=== PATIENT | male | born 1970 | race Caucasian/White ===

== ENCOUNTER 2021-02-07 16:57 | Outpatient (REF) | payer OTHER, SELFPAY ==
[2021-02-07 17:40] LABS: MANUAL DIFF FLAG NO
[2021-02-07 17:44] LABS: Basophils Percent Auto 0.3 % (0-2); Eosinophils Absolute Auto 0.2 X10*3/uL (0.0-0.4); Eosinophils Percent Auto 2.6 % (0-4); Hematocrit 33.7 % (42-52); Hemoglobin 11.3 g/dl (14.0-18.0); Imm Gran Abs Auto 0.02 X10*3/uL (0.00-0.03); Imm Gran Pct Auto 0.3 % (0.0-0.4); Lymphocytes Absolute Auto 1.9 X10*3/uL (1.2-4.9); Lymphocytes Percent Auto 33.7 % (20-40); Mean Corpuscular HGB Conc 33.5 g/dl (31.0-36.0); Mean Corpuscular Hemoglobin 32.8 pg (27.0-33.0); Mean Corpuscular Volume 97.7 fL (80-98); Mean Platelet Volume 9.4 fL (9.4-12.4); Monocytes Absolute Auto 0.8 X10*3/uL (0.1-1.2); Monocytes Percent Auto 14.7 % (2-11); Neutrophils Absolute Auto 2.8 X10*3/uL (2.0-8.3); Neutrophils Percent Auto 48.4 % (45-73); Platelet Count 122 X10*3/uL (160-400); Red Blood Count 3.45 X10*6/uL (4.60-5.80); Red Cell Distribution Width 12.7 % (11.0-16.0); White Blood Count 5.7 X10*3/uL (4.8-10.8)
[2021-02-07 18:05] LABS: Alanine Aminotransferase 73 U/L (0-40); Albumin Level 4.2 g/dL (3.5-5.0); Alkaline Phosphatase 212 U/L (39-117); Anion Gap 14 (12-20); Aspartate Amino Transferase 66 U/L (5-37); Bilirubin Total 0.9 mg/dL (0.0-1.0); Blood Urea Nitrogen 9 mg/dL (9-16); Calcium 9.9 mg/dL (8.4-10.2); Carbon Dioxide 23 mmol/L (22-29); Chloride 105 mmol/L (96-108); Cholesterol 168 mg/dL; Estimated Glomerular Filt Rate > 60; Glucose Random 98 mg/dL (60-115); HDL Cholesterol 50 mg/dL; LDL Cholesterol Calculated 96 mg/dl; Potassium 3.8 mmol/L (3.3-5.1); Sodium 138 mmol/L (135-145); Triglycerides 113 mg/dL
== END 2021-02-07 16:58 | disposition home or self-care (01) ==
LOC: HO.LAB 16:57
PROVIDERS: PCP Internal Medicine; Visit Provider Internal Medicine
DX: I10 Essential (primary) hypertension (principal); R21 Rash and other nonspecific skin eruption
CPT/HCPCS: 36415; 80053; 80061; 85025

== ENCOUNTER 2021-09-15 10:51 | Outpatient (REF) | payer OTHER, SELFPAY ==
[2021-09-15 10:56] VITALS: BMI 30.2
[2021-09-15 10:57] VITALS: BP 115/68; PULSE 75; RESP 16; TEMP 36.3; O2SAT 97
== END 2021-09-15 10:52 | disposition home or self-care (01) ==
LOC: HO.MS 10:51
PROVIDERS: PCP Internal Medicine; Visit Provider Ophthalmology
PROC: (CPT 66821; principal; 2021-09-15 12:50)
DX: H26.491 Other secondary cataract, right eye (principal); Z96.1 Presence of intraocular lens; I10 Essential (primary) hypertension; Z79.899 Other long term (current) drug therapy; Z87.891 Personal history of nicotine dependence
CPT/HCPCS: 66821

== ENCOUNTER 2021-11-06 11:24 | Outpatient (REF) | payer OTHER, SELFPAY ==
[2021-11-06 12:03] LABS: COVID-19 Test Negative (Negative)
== END 2021-11-06 11:25 | disposition home or self-care (01) ==
LOC: HO.LAB 11:24
PROVIDERS: Visit Provider Internal Medicine
DX: Z20.822 Contact with and (suspected) exposure to COVID-19 (principal)
CPT/HCPCS: 87635; C9803

== ENCOUNTER 2021-11-21 16:52 | Outpatient (REF) | payer OTHER, SELFPAY ==
[2021-11-21 18:13] LABS: Alanine Aminotransferase 57 U/L (0-40); Albumin Level 3.7 g/dL (3.5-5.0); Alkaline Phosphatase 292 U/L (39-117); Anion Gap 12 (12-20); Aspartate Amino Transferase 87 U/L (5-37); Bilirubin Total 1.8 mg/dL (0.0-1.0); Blood Urea Nitrogen 10 mg/dL (9-16); Calcium 9.1 mg/dL (8.4-10.2); Carbon Dioxide 25 mmol/L (22-29); Chloride 105 mmol/L (96-108); Cholesterol 167 mg/dL; Estimated Glomerular Filt Rate > 60; Glucose Random 108 mg/dL (60-115); HDL Cholesterol 40 mg/dL; LDL Cholesterol Calculated 114 mg/dl; Potassium 3.9 mmol/L (3.3-5.1); Sodium 138 mmol/L (135-145); Total Protein 7.7 g/dL (6.5-8.0); Triglycerides 66 mg/dL
[2021-11-24 07:54] LABS: HBS Num1 3.64 mIU/mL (0-7.99); HBc Num1 0.17 S/CO (0.00-0.79); HBsAGNum1 0.28 S/CO (0.00-0.99); Hepatitis B Core Antibody Nonreactive (Nonreactive); Hepatitis B Surface Antigen Negative (Negative); ~Hepatitis B Surface Antibody NONREACTIVE (Nonreactive); ~Hepatitis C Antibody Nonreactive (Nonreactive)
[2021-11-25 07:54] LABS: Hepatitis A Antibody IgM 0.12 Index (0-0.79); ~Hepatitis A Antibody IgM Nonreactive (Nonreactive)
== END 2021-11-21 16:53 | disposition home or self-care (01) ==
LOC: HO.LAB 16:52
PROVIDERS: PCP Internal Medicine; Visit Provider Internal Medicine
DX: Z00.00 Encounter for general adult medical examination without abnormal findings (principal); F10.20 Alcohol dependence, uncomplicated; I10 Essential (primary) hypertension; R74.01 Elevation of levels of liver transaminase levels
CPT/HCPCS: 36415; 80053; 80061; 86704; 86706; 86709; 86803; 87340

== ENCOUNTER 2022-04-20 13:47 | Outpatient (REF) | payer OTHER, SELFPAY ==
[2022-04-20 14:22] LABS: COVID-19 Test Negative (Negative); IDNOW Serial# BCCEAD1C
== END 2022-04-20 13:48 | disposition home or self-care (01) ==
LOC: HO.LAB 13:47
PROVIDERS: Visit Provider Internal Medicine
DX: Z20.822 Contact with and (suspected) exposure to COVID-19 (principal)
CPT/HCPCS: 87635; C9803

== ENCOUNTER 2022-06-16 12:32 | Emergency (ER) | payer OTHER, SELFPAY ==
--- NOTE | ~2022-06-16 | XR_ITS ---
EXAMINATION: LEFT TIBIA-FIBULA. LEFT FEMUR. CLINICAL INFORMATION: Pain and swelling COMPARISON: None TECHNIQUE: 2 views of the left tibia fibula. 2 views left femur. FINDINGS: Left femur: No fracture or destructive process. Left hip intact. Chronic osseous irregularity to the inferior left hemipelvis likely due to old trauma. Vascular calcifications are noted. The patient diabetic? Left tibia fibula: Degenerative changes in the knee. The tibia and fibula are intact. Vascular calcifications noted. The ankle mortise is noted to be intact. XR/XR femur LT 2V IMPRESSION: No acute abnormalities.
--- NOTE | ~2022-06-16 | XR_ITS ---
EXAMINATION: LEFT TIBIA-FIBULA. LEFT FEMUR. CLINICAL INFORMATION: Pain and swelling COMPARISON: None TECHNIQUE: 2 views of the left tibia fibula. 2 views left femur. FINDINGS: Left femur: No fracture or destructive process. Left hip intact. Chronic osseous irregularity to the inferior left hemipelvis likely due to old trauma. Vascular calcifications are noted. The patient diabetic? Left tibia fibula: Degenerative changes in the knee. The tibia and fibula are intact. Vascular calcifications noted. The ankle mortise is noted to be intact. XR/XR tibia fibula LT 2V IMPRESSION: No acute abnormalities.
[2022-06-16 14:11] VITALS: BP 137/76; PULSE 86; RESP 16; TEMP 36.3; O2SAT 99; BMI 31.0
--- NOTE | 2022-06-16 14:13 | ED_ITS ---
HPI - General Adult General Chief complaint: Extremity Injury, Lower <JERRI Mcfarlane Last Filed: 06/22/22 12:01> Stated complaint: L leg swelling <JERRI Mcfarlane Last Filed: 06/22/22 12:01> Time Seen by Provider: 06/16/22 14:52 <JERRI Mcfarlane Last Filed: 06/22/22 12:01> Source: patient <JERRI Paredes Last Filed: 06/16/22 16:48> Mode of arrival: ambulatory <JERRI Paredes Last Filed: 06/16/22 16:48> Limitations: no limitations <JERRI Paredes Last Filed: 06/16/22 16:48> History of Present Illness HPI narrative: 52 yo male presenting to the ER for evaluation of an expanding bruise on his left leg. He reports he fell on 06/13 while walking down the stairs and his left leg hit the banister. He reports initially getting a small bruise to the inside of his left knee. Over the last few days the bruise has been expanding. It is bright purple and blue. The center is tender. He reports it is worse throbbing pain when he stands on his legs for too long. He is not on blood thinners or aspirin. He denies any other injuries. He denies any weakness, numbness or tingling in the leg. <JERRI Paredes Last Filed: 06/16/22 16:48> MD complaint: Expanding hematoma <JERRI Paredes Last Filed: 06/16/22 16:48> Onset (ago): day(s) <JERRI Paredes Last Filed: 06/16/22 16:48> Location: left and lower extremity <JERRI Paredes Last Filed: 06/16/22 16:48> Radiation: distal <JERRI Paredes Last Filed: 06/16/22 16:48> Severity: moderate <JERRI Paredes Last Filed: 06/16/22 16:48> Quality: aching <JERRI Paredes Last Filed: 06/16/22 16:48> Pain Consistency: intermittent <JERRI Paredes Last Filed: 06/16/22 16:48> Relieving factors: movement <JERRI Paredes Last Filed: 06/16/22 16:48> Exacerbating factors: immobilization <JERRI Paredes Last Filed: 06/16/22 16:48> Associated symptoms: denies other symptoms <JERRI Paredes Last Filed: 06/16/22 16:48> Treatments prior to arrival: none <JERRI Paredes Last Filed: 06/16/22 16:48> Related Data Allergies/adverse reactions: Allergies Allergy/AdvReac Type Severity Reaction Status Date / Time acetaminophen [From PERCOCET] Allergy Unknown ITCHING Unverified 02/01/20 15:05 oxycodone [From PERCOCET] Allergy Unknown ITCHING Unverified 02/01/20 15:05 <JERRI Mcfarlane Last Filed: 06/22/22 12:01> Review of Systems Review of Systems: Yes all other systems are reviewed and are negative <JERRI Paredes Last Filed: 06/16/22 16:48> [facility] Social History Social History: Social History Advance Directives: No Advance Directives Information Provided: Yes <JERRI Mcfarlane Last Filed: 06/22/22 12:01> Physical Exam ED Vital Signs: Vital Signs - 24 hr 06/16/22 14:11 Temperature 97.4 F Pulse Rate 86 Respiratory Rate 16 Blood Pressure 137/76 Pulse Oximetry 99 Oxygen Delivery Method Room Air BMI result Body Mass Index 31.0 <JERRI Mcfarlane Last Filed: 06/22/22 12:01> Vital Signs - 24 hr 06/16/22 14:11 Temperature 97.4 F Pulse Rate 86 Respiratory Rate 16 Blood Pressure 137/76 Pulse Oximetry 99 Oxygen Delivery Method Room Air BMI result Body Mass Index 31.0 <JERRI Paredes Last Filed: 06/16/22 16:48> Appearance: Alert. Oriented X3. No acute distress. HEENT: normal inspection CVS: Normal heart rate and rhythm. Pulses normal. Respiratory: No respiratory distress. Skin: Skin warm and dry. Normal skin color. Normal skin turgor. No rashes. Extremities: Large, dark purple hematoma of the distal half of the left inner thigh, medial left knee and proximal left lower leg. Central area of tenderness and firmness. Compartments are otherwise soft and compressible. Neurovascularly intact distally. Normal range of motion of the knee. Neuro: Oriented X 3. No motor deficit. No sensory deficit. Slow but steady gait <JERRI Paredes Last Filed: 06/16/22 16:48> Course Course Course Narrative: RME: presents to the ED for left lower thigh and upper tibia ecchymosis due to fall. patient has been walking. on exam positive for ecchymosis on left lower medial thight and upper tibia that is tender and flat. no mass on palpation. has complete range of motion. motor, neuro, and vascular exam of extemity intact. <JERRI Mcfarlane Last Filed: 06/22/22 12:01> Reevaluation(s) Reevaluation #1: X-rays are normal. Examination is consistent with hematoma, does not seem to be for more have any risk of compartment syndrome. Does not appear to be expanding. Newton most likely resulted in the hematoma expanding. No evidence of active bleeding. He is not on anticoagulation and is neurovascularly intact distally. Ice applied as well as Jimi wraps. We discussed management and return precautions. Stable for discharge home. <JERRI Paredes Last Filed: 06/16/22 16:48> Medical Decision Making Differential Diagnosis Differential Diagnoses: The differential diagnosis associated with the presentation includes <JERRI Paredes Last Filed: 06/16/22 16:48> Hematoma, contusion, compartment syndrome, arterial bleed, knee sprain <JERRI Paredes Last Filed: 06/16/22 16:48> Independent Interpretation I performed an independent interpretation of an: Plain X-Ray <JERRI Paredes Last Filed: 06/16/22 16:48> Interpretation: Normal appearing tibia, fibula, femur on the left. No acute fractures. <JERRI Paredes Last Filed: 06/16/22 16:48> Radiology Impression Discussion of test interpretation with radiology: I have reviewed the radiologist's reading. <JERRI Paredes Last Filed: 06/16/22 16:48> Radiologist Impression: XR/XR tibia fibula LT 2V IMPRESSION: No acute abnormalities.? XR/XR femur LT 2V IMPRESSION: No acute abnormalities.? <JERRI Paredes - Last Filed: 06/16/22 16:48> Independent Historian Clinical information obtained from an independent historian. History obtained from or confirmed by: Spouse <JERRI Paredes - Last Filed: 06/16/22 16:48> External Record Review External record reviewed: Outpatient record, Prior outpatient labs and Prior outpatient radiology <JERRI Paredes - Last Filed: 06/16/22 16:48> Tests considered The following testing was considered but not selected: CTA angio of the leg was considered, however there does not appear to be any acute bleeding, injury several days old, no evidence of compartment syndrome. <JERRI Paredes - Last Filed: 06/16/22 16:48> Prescription Management I considered prescription management with: Pain Medication <JERRI Paredes - Last Filed: 06/16/22 16:48> Discharge Plan Discharge Clinical Impression: Hematoma <JERRI Mcfarlane - Last Filed: 06/22/22 12:01> Patient Disposition: Home, Self-Care <JERRI Mcfarlane - Last Filed: 06/22/22 12:01> Instructions: Contusion in Adults (ED), Hematoma (ED) <JERRI Mcfarlane - Last Filed: 06/22/22 12:01> Additional Instructions: Your x-rays today were normal. Wear the provided JIMI wraps to help with compression and support. Elevate and ice your leg when possible. Take 975 mg of Tylenol every 6 hours around the clock. Follow up with your doctor. If you develop new or worsening symptoms call 911 or come back to the ER for further evaluation. <JERRI Mcfarlane - Last Filed: 06/22/22 12:01> Stand Alone Forms: Work/School Release <JERRI Mcfarlane - Last Filed: 06/22/22 12:01> Interventions: ED Discharge Assessment Last Done: 06/16/22 17:43 <JERRI Mcfarlane - Last Filed: 06/22/22 12:01> Discharge Date/Time: 06/16/22 17:44 <JERRI Mcfarlane - Last Filed: 06/22/22 12:01>
== END 2022-06-16 17:44 | disposition home or self-care (01) ==
PROVIDERS: Emergency Provider Emergency Medicine; PCP Internal Medicine
DX: S70.12XA Contusion of left thigh, initial encounter (principal); S80.02XA Contusion of left knee, initial encounter; S80.12XA Contusion of left lower leg, initial encounter; W10.9XXA Fall (on) (from) unspecified stairs and steps, initial encounter; Y93.89 Activity, other specified; Y92.038 Other place in apartment as the place of occurrence of the external cause; Y99.9 Unspecified external cause status
CPT/HCPCS: 73552; 73590; 99282; 99283

== ENCOUNTER 2022-07-16 00:50 | Emergency (ER) | payer OTHER, SELFPAY ==
--- NOTE | ~2022-07-16 | US_ITS ---
EXAMINATION: US SCROTUM CLINICAL INFORMATION: Pain and swelling. COMPARISON: None TECHNIQUE: A sonogram of the scrotum was performed assessing blackwood-scale appearance and color Doppler flow. Spectral Doppler analysis of the arterial and venous flow were performed in the testes bilaterally. FINDINGS: RIGHT: Right testicle measures 3.5 x 2.6 x 2.3 cm, volume 11 mL. No focal testicular parenchymal lesions are visualized. Spectral Doppler analysis of the arterial and venous flow is normal in the right testis. Right epididymal head is normal in size. The body and tail of the epididymis was not clearly visualized due to scrotal wall thickening. No right hydrocele or varicocele is seen. Right epididymal Doppler flow is normal. LEFT: Left testicle measures 3.4 x 2.3 x 2.4 cm, volume 10 mL. No focal testicular parenchymal lesions are visualized. Spectral Doppler analysis of the arterial and venous flow is normal in the left testis. Left epididymal head is normal in size. The body and tail of the epididymis was not clearly visualized due to scrotal wall thickening. A few small cysts are noted within the left epididymal head, largest measuring 4 mm. No left hydrocele or varicocele is seen. Left epididymal Doppler flow is normal. Overall there is severe diffuse scrotal wall thickening measuring up to 2 cm. There is increased color Doppler flow diffusely throughout the scrotal wall. No well-defined fluid collection identified within the scrotal wall. US/US scrotum doppler IMPRESSION: 1. Symmetrically sized testicles demonstrating normal arterial and venous waveforms. 2. Severe diffuse scrotal wall thickening with increased color Doppler flow diffusely throughout the scrotal wall.
--- NOTE | ~2022-07-16 | US_ITS ---
EXAMINATION: US SCROTUM CLINICAL INFORMATION: Pain and swelling. COMPARISON: None TECHNIQUE: A sonogram of the scrotum was performed assessing blackwood-scale appearance and color Doppler flow. Spectral Doppler analysis of the arterial and venous flow were performed in the testes bilaterally. FINDINGS: RIGHT: Right testicle measures 3.5 x 2.6 x 2.3 cm, volume 11 mL. No focal testicular parenchymal lesions are visualized. Spectral Doppler analysis of the arterial and venous flow is normal in the right testis. Right epididymal head is normal in size. The body and tail of the epididymis was not clearly visualized due to scrotal wall thickening. No right hydrocele or varicocele is seen. Right epididymal Doppler flow is normal. LEFT: Left testicle measures 3.4 x 2.3 x 2.4 cm, volume 10 mL. No focal testicular parenchymal lesions are visualized. Spectral Doppler analysis of the arterial and venous flow is normal in the left testis. Left epididymal head is normal in size. The body and tail of the epididymis was not clearly visualized due to scrotal wall thickening. A few small cysts are noted within the left epididymal head, largest measuring 4 mm. No left hydrocele or varicocele is seen. Left epididymal Doppler flow is normal. Overall there is severe diffuse scrotal wall thickening measuring up to 2 cm. There is increased color Doppler flow diffusely throughout the scrotal wall. No well-defined fluid collection identified within the scrotal wall. US/US scrotum IMPRESSION: 1. Symmetrically sized testicles demonstrating normal arterial and venous waveforms. 2. Severe diffuse scrotal wall thickening with increased color Doppler flow diffusely throughout the scrotal wall.
[2022-07-16 00:54] VITALS: BP 129/59; PULSE 97; RESP 18; TEMP 36.9; O2SAT 97; BMI 31.0
--- NOTE | 2022-07-16 01:26 | MHC.EDTECH ---
pt was called back to triage to re do vitals sign and draw labs .
[2022-07-16 01:27] LABS: MANUAL DIFF FLAG NO
[2022-07-16 01:29] LABS: Basophils Percent Auto 0.2 % (0-2); Eosinophils Absolute Auto 0.2 X10*3/uL (0.0-0.4); Eosinophils Percent Auto 1.4 % (0-4); Hematocrit 33.3 % (42.0-52.0); Hemoglobin 11.7 g/dl (14.0-18.0); Imm Gran Abs Auto 0.04 X10*3/uL (0.00-0.03); Imm Gran Pct Auto 0.3 % (0.0-0.4); Lymphocytes Absolute Auto 2.1 X10*3/uL (1.2-4.9); Lymphocytes Percent Auto 16.5 % (20-40); Mean Corpuscular HGB Conc 35.1 g/dl (31.0-36.0); Mean Corpuscular Hemoglobin 32.6 pg (27.0-33.0); Mean Corpuscular Volume 92.8 fL (80.0-98.0); Mean Platelet Volume 9.2 fL (9.4-12.4); Monocytes Absolute Auto 1.5 X10*3/uL (0.1-1.2); Monocytes Percent Auto 11.9 % (2-11); Neutrophils Absolute Auto 8.7 x10*3/uL (2.0-8.3); Neutrophils Percent Auto 69.7 % (45-73); Platelet Count 67 X10*3/uL (160-400); Red Blood Count 3.59 X10*6/uL (4.60-5.80); Red Cell Distribution Width 12.9 % (11.0-16.0); White Blood Count 12.5 X10*3/uL (4.8-10.8)
[2022-07-16 01:46] LABS: Alanine Aminotransferase 58 U/L (0-40); Albumin Level 3.6 g/dL (3.5-5.0); Alkaline Phosphatase 212 U/L (39-117); Anion Gap 17 (12-20); Aspartate Amino Transferase 61 U/L (5-37); Bilirubin Total 1.9 mg/dL (0.0-1.0); Blood Urea Nitrogen 16 mg/dL (9-16); Calcium 8.7 mg/dL (8.4-10.2); Carbon Dioxide 18 mmol/L (22-29); Chloride 98 mmol/L (96-108); Creatinine Clr Calc Pharmacy 101.6; Estimated Glomerular Filt Rate > 60; Glucose Random 141 mg/dL (60-115); Potassium 3.8 mmol/L (3.3-5.1); Sodium 129 mmol/L (135-145); Total Protein 7.7 g/dL (6.5-8.0)
[2022-07-16 04:53] LABS: Appearance Urine Clear; Color Urine Yellow; Glucose Urine UA Negative (Negative); Leukocyte Esterase Urine Negative (Negative); Nitrite Urine Negative (Negative); Urine Blood Negative (Negative); Urine Ketones Negative (Negative); Urine Protein Negative (Neg-Trace)
[2022-07-16 05:31] VITALS: BP 123/68; PULSE 72; RESP 16; TEMP 36.9; O2SAT 97
[2022-07-16 08:13] VITALS: BP 115/66; PULSE 89; RESP 20; TEMP 37; O2SAT 96
--- NOTE | 2022-07-16 08:30 | PC.NURSE ---
pt scrotum is extremely enlarged natalio and harden at the distal end. pt's penis is also very enlarged and natalio, no drainage noted.
--- NOTE | 2022-07-16 08:52 | ED_ITS ---
HPI - Male Genitourinary General Chief complaint: Urogenital-Male Stated complaint: uro-genital male Time Seen by Provider: 07/16/22 08:30 Source: patient Mode of arrival: ambulatory History of Present Illness HPI Narrative: 52-year-old male with history of hypertension and alcohol use disorder presents with complaints of penile and scrotal swelling for several weeks, but patient states that the swelling and pain has worsened today and denies any pain or discharge from the penis. Related Data Previous Rx's Medication Instructions Recorded levofloxacin 500 mg tablet 500 mg PO DAILY #10 tabs 07/16/22 Allergies Allergy/AdvReac Type Severity Reaction Status Date / Time oxycodone [From PERCOCET] Allergy Unknown ITCHING Unverified 02/01/20 15:05 Review of Systems Review of Systems: Pertinent positives and negatives as stated in HPI [facility] Past Medical History Source: nursing notes reviewed Social History Social History Alcohol intake: current Alcohol intake frequency: 0-2 drinks per day Smoked in Last 30 Days: No Use of substances other than those prescribed or required for medical reasons: No Advance Directives: No Physical Exam Vital Signs: Vital Signs: Last Vital Signs Temp 99.5 F 07/16/22 12:02 Pulse 86 07/16/22 12:02 Resp 18 07/16/22 12:02 BP 114/60 07/16/22 12:02 Pulse Ox 97 07/16/22 12:02 O2 Del Method 07/16/22 12:02 BMI result Body Mass Index 31.0 VITAL SIGNS: Reviewed. GENERAL: Well developed, well nourished, in no acute distress. HEAD: Normocephalic/atraumatic EYES: PERRLA, EOMI LUNGS: Normal breath sounds. No adventitious sounds or accessory muscle use. SpO2<96> CARDIOVASCULAR: Regular rate and rhythm without noted murmurs ABDOMEN: Soft, non-tender, non-distended with bowel sounds. : Penis appears to be edematous without evidence of infection, patient able to retract foreskin without difficulty there is mild erythema to the penile shaft to the appears to be superficial in nature, the scrotum is significantly edematous with skin thickening suggestive of chronic component, there is no extension of erythema or induration to the perineal or perianal area. Patient does have what appears to be a healing area to the right groin. MUSCULOSKELETAL: No tenderness, deformities, or effusions noted on gross inspection. EXTREMITIES: No cyanosis, clubbing or edema. SKIN: Inspection of the skin reveals no rashes NEUROLOGIC: Alert and oriented x 4. Strength and sensation to light touch were grossly intact x 4. Medications Administered Generic Name Dose Route Start Last Admin Trade Name Freq PRN Reason Stop Dose Admin Sodium Chloride 1,000 mls @ 999 mls/hr 07/16/22 11:45 07/16/22 12:38 Ns IV 07/16/22 12:45 Infused .Q1H1M AMAURY Infusion Discontinued Medications Generic Name Dose Route Start Last Admin Trade Name Freq PRN Reason Stop Dose Admin Bacitracin 1 appl 07/16/22 08:53 07/16/22 09:27 Bacitracin Oint 0.9 Gm Packet TOPICAL 07/16/22 08:54 1 appl ONCE ONE Administration Protocol Ceftriaxone Sodium 1 gm/ 50 mls @ 100 mls/hr 07/16/22 11:21 07/16/22 12:17 Sodium Chloride IV 07/16/22 11:50 Infused ONCE ONE Infusion Medical Decision Making Medical Decision Making [facility] Narrative: 52-year-old male with history and clinical presentation suggestive some form of scrotal abnormality, as this is been going on for weeks low clinical suspicion for Jersey's gangrene although patient has a risk factor in his alcohol use disorder, he is not febrile, the healing burn area to the right groin appears to be without evidence of infection, there is no corresponding stranding down to the penis or scrotal area and the mons pubis is not tender on palpation. Review of all investigations and discussion with the consultants my interpr etation is as patient has a cellulitis, no concerns for Jersey gangrene, received antibiotics here in the emergency room as well as IV fluids and discharged home in stable condition with 10 days of Levaquin. He will also be following up with Dr. Jan Casey. He was informed of all results and findings. Differential Diagnosis Please see the discussion above Consult Healthcare Provider Management of the patient was discussed with: [id number]: I discussed the case with Urology, Dr. Johnie lujan, who recommends a dose of IV Rocephin in the emergency room and then discharged on Levaquin 500 mg for 10 days. Lab Data Please see the discussion above 07/16/22 01:22 07/16/22 01:22 Labs: Lab Results 07/16/22 07/16/22 07/16/22 Range/Units 01:22 01:22 04:45 WBC 12.5 H (4.8-10.8) X10*3/uL RBC 3.59 L (4.60-5.80) X10*6/uL Hgb 11.7 L (14.0-18.0) g/dl Hct 33.3 L (42.0-52.0) % MCV 92.8 (80.0-98.0) fL MCH 32.6 (27.0-33.0) pg MCHC 35.1 (31.0-36.0) g/dl RDW 12.9 (11.0-16.0) % Plt Count 67 L (160-400) X10*3/uL MPV 9.2 L (9.4-12.4) fL Immature Gran % (Auto) 0.3 (0.0-0.4) % Neut % (Auto) 69.7 (45-73) % Lymph % (Auto) 16.5 L (20-40) % Foard % (Auto) 11.9 H (2-11) % Eos % (Auto) 1.4 (0-4) % Baso % (Auto) 0.2 (0-2) % Lymph # (Auto) 2.1 (1.2-4.9) X10*3/uL Foard # (Auto) 1.5 H (0.1-1.2) X10*3/uL Eos # (Auto) 0.2 (0.0-0.4) X10*3/uL Baso # (Auto) 0.0 (0.0-0.2) X10*3/uL Abs Immat Gran (auto) 0.04 H (0.00-0.03) X10*3/uL Absolute Neuts (auto) 8.7 H (2.0-8.3) x10*3/uL Absolute Nucleated RBC 0.000 (0.0-0.012) X10*3/uL Nucleated RBC % (auto) 0.0 (0.0-0.2) /100WBC Sodium 129 L (135-145) mmol/L Potassium 3.8 (3.3-5.1) mmol/L Chloride 98 (96-108) mmol/L Carbon Dioxide 18 L (22-29) mmol/L Anion Gap 17 (12-20) BUN 16 (9-16) mg/dL Creatinine 0.99 (0.5-1.4) mg/dL Estim Creat Clear Calc 101.6 Estimated GFR > 60 Random Glucose 141 H (60-115) mg/dL Lactic Acid (0.5-2.0) mmol/L Calcium 8.7 (8.4-10.2) mg/dL Total Bilirubin 1.9 H (0.0-1.0) mg/dL AST 61 H (5-37) U/L ALT 58 H (0-40) U/L Alkaline Phosphatase 212 H (39-117) U/L Total Protein 7.7 (6.5-8.0) g/dL Albumin 3.6 (3.5-5.0) g/dL Urine Color Yellow Urine Appearance Clear Urine pH 6.0 (5.0-9.0) Ur Specific [place] 1.010 (1.005-1.025) Urine Protein Negative (Neg-Trace) mg/dL Urine Glucose (UA) Negative (Negative) mg/dL Urine Ketones Negative (Negative) mg/dL Urine Blood Negative (Negative) Urine Nitrite Negative (Negative) Ur Leukocyte Esterase Negative (Negative) Ethyl Alcohol 132 mg/dL Chlam trachomat DNA PCR (Not Detect.) N.gonorrhoeae DNA (PCR) (Not Detect.) 07/16/22 07/16/22 Range/Units 09:28 09:33 WBC (4.8-10.8) X10*3/uL RBC (4.60-5.80) X10*6/uL Hgb (14.0-18.0) g/dl Hct (42.0-52.0) % MCV (80.0-98.0) fL MCH (27.0-33.0) pg MCHC (31.0-36.0) g/dl RDW (11.0-16.0) % Plt Count (160-400) X10*3/uL MPV (9.4-12.4) fL Immature Gran % (Auto) (0.0-0.4) % Neut % (Auto) (45-73) % Lymph % (Auto) (20-40) % Foard % (Auto) (2-11) % Eos % (Auto) (0-4) % Baso % (Auto) (0-2) % Lymph # (Auto) (1.2-4.9) X10*3/uL Foard # (Auto) (0.1-1.2) X10*3/uL Eos # (Auto) (0.0-0.4) X10*3/uL Baso # (Auto) (0.0-0.2) X10*3/uL Abs Immat Gran (auto) (0.00-0.03) X10*3/uL Absolute Neuts (auto) (2.0-8.3) x10*3/uL Absolute Nucleated RBC (0.0-0.012) X10*3/uL Nucleated RBC % (auto) (0.0-0.2) /100WBC Sodium (135-145) mmol/L Potassium (3.3-5.1) mmol/L Chloride (96-108) mmol/L Carbon Dioxide (22-29) mmol/L Anion Gap (12-20) BUN (9-16) mg/dL Creatinine (0.5-1.4) mg/dL Estim Creat Clear Calc Estimated GFR Random Glucose (60-115) mg/dL Lactic Acid 1.0 (0.5-2.0) mmol/L Calcium (8.4-10.2) mg/dL Total Bilirubin (0.0-1.0) mg/dL AST (5-37) U/L ALT (0-40) U/L Alkaline Phosphatase (39-117) U/L Total Protein (6.5-8.0) g/dL Albumin (3.5-5.0) g/dL Urine Color Urine Appearance Urine pH (5.0-9.0) Ur Specific [place] (1.005-1.025) Urine Protein (Neg-Trace) mg/dL Urine Glucose (UA) (Negative) mg/dL Urine Ketones (Negative) mg/dL Urine Blood (Negative) Urine Nitrite (Negative) Ur Leukocyte Esterase (Negative) Ethyl Alcohol mg/dL Chlam trachomat DNA PCR NOT DETECTED (Not Detect.) N.gonorrhoeae DNA (PCR) NOT DETECTED (Not Detect.) Radiology Impression Radiologist Impression: My interpretation is in agreement with radiology's impression of the imaging study. External Record Review External record reviewed: Outpatient record and Prior outpatient labs Chronic Conditions Patient?s care impacted by: Hypertension Discharge Plan Discharge Clinical Impression: Cellulitis of scrotum Patient Disposition: Home, Self-Care Instructions: Cellulitis (ED) Additional Instructions: 1. You need to complete the entire course of antibiotics. You will then follow- up with Urology. The referral is located below and you need to call the office today to set up that appointment. 2. Take [id number] Tylenol/ibuprofen as needed for pain control, you should elevate the scrotum on a try folded tactile at night and wear briefs not boxers. 3. Follow-up with your primary care provider by calling the office today and setting up an appointment for re-evaluation further outpatient management. Return to the ER for any worsening symptoms. Prescriptions: New levofloxacin 500 mg tablet 500 mg PO DAILY Qty: 10 0RF Referrals: Lindy Hill MD [Primary Care Provider] - Ming Hare MD [Physician] -
[2022-07-16] MEDS: Bacitracin Oint 0.9 GM PACKET 1 APPL TOPICAL (09:27)
[2022-07-16 10:48] LABS: Ethanol 132 mg/dL
[2022-07-16] MEDS: cefTRIAXone sodium 1 GM in 0.9 % Sodium Chloride 50 ML IV (11:39)
[2022-07-16 11:44] LABS: CT PCR NOT DETECTED (Not Detect.); NG PCR NOT DETECTED (Not Detect.)
[2022-07-16] MEDS: 0.9 % Sodium Chloride 1,000 ML 999 ML IV (11:50)
[2022-07-16 12:02] VITALS: BP 114/60; PULSE 86; RESP 18; TEMP 37.5; O2SAT 97
== END 2022-07-16 13:31 | disposition home or self-care (01) ==
PROVIDERS: Emergency Provider Student in an Organized Health Care Education/Training Program; PCP Internal Medicine
DX: N49.2 Inflammatory disorders of scrotum (principal); R10.2 Pelvic and perineal pain; Z20.2 Contact with and (suspected) exposure to infections with a predominantly sexual mode of transmission; Z79.899 Other long term (current) drug therapy
CPT/HCPCS: 0353U; 36415; 51798; 76870; 80053; 81003; 82077; 83605; 85025; 87040; 87147; 87205; 93975; 96365; 99284; 99285; J0696

== ENCOUNTER → 2022-07-28 08:46 | Outpatient (BNVA) | payer OTHER, SELFPAY | PROVIDERS: PCP Internal Medicine; Visit Provider Nurse Practitioner Family | DX: Z13.89 Encounter for screening for other disorder (principal) ==

== ENCOUNTER → 2022-08-12 15:47 | Outpatient (BNVA) | payer OTHER, SELFPAY | PROVIDERS: PCP Internal Medicine; Visit Provider Nurse Practitioner Family | DX: Z13.89 Encounter for screening for other disorder (principal) ==

== ENCOUNTER 2022-09-21 14:54 | Outpatient (REF) | payer OTHER, SELFPAY ==
[2022-09-21 16:22] LABS: Blood Urea Nitrogen 13 mg/dL (9-16); Estimated Glomerular Filt Rate > 60
== END 2022-09-21 14:55 | disposition home or self-care (01) ==
LOC: HO.LAB 14:54
PROVIDERS: PCP Internal Medicine; Visit Provider Nurse Practitioner Family
DX: R39.15 Urgency of urination (principal)
CPT/HCPCS: 36415; 82565; 84520

== ENCOUNTER 2022-09-22 08:28 | Outpatient (REF) | payer OTHER, SELFPAY ==
--- NOTE | ~2022-09-22 | CT_ITS ---
EXAMINATION: CT PELVIS WITH CONTRAST CLINICAL INFORMATION: Swelling of scrotum and penile region. COMPARISON: None available. TECHNIQUE: Helical scanning was performed with submillimeter collimation through the pelvis with the use of oral contrast and during bolus intravenous injection of 100 mL of Omnipaque 350 intravenous contrast. Imaging was obtained in arterial and venous phase. Sagittal and coronal multiplanar 2-D reconstructions were obtained. This CT examination was performed using dose optimization techniques as appropriate, variously including the following: *Automated exposure control *Adjustment of mA and/or kV according to patient size (this includes techniques or standardized protocols for targeted exams where dose is matched to indication/reason for exam; i.e. extremities or head) *Use of iterative reconstruction technique DLP: 1986 mGy-cm FINDINGS: PELVIS: The bladder is unremarkable. The prostate gland is normal size. No pelvic free fluid. No abnormal pelvic lymph nodes or mass seen. There is widely patent bilateral common iliac, external and internal iliac arteries and their branches. On delayed venous phase there is patent bilateral common iliac and external iliac arteries. Internal iliac arteries are visualized and appear patent as well. OSSEOUS STRUCTURES: No aggressive lytic or sclerotic process seen. CT/CT pelvis w IV con IMPRESSION: There is no suggestion for pelvic mass or free fluid. The common, internal iliac arteries and veins appear patent. Proximal IVC appears patent.
[2022-09-22] MEDS: iohexoL 350 MG/ML 100 ML INFUS..BTL IV (08:57)
== END 2022-09-22 08:29 | disposition home or self-care (01) ==
LOC: HO.CT 08:28
PROVIDERS: PCP Internal Medicine; Visit Provider Nurse Practitioner Family
DX: N48.89 Other specified disorders of penis (principal); N50.89 Other specified disorders of the male genital organs
CPT/HCPCS: 72193; 72194; Q9967

== ENCOUNTER → 2022-09-24 15:46 | Outpatient (BNVA) | payer OTHER, SELFPAY | PROVIDERS: PCP Internal Medicine; Visit Provider Nurse Practitioner Family ==

== ENCOUNTER → 2022-09-25 15:59 | Outpatient (BNVA) | payer OTHER, SELFPAY | PROVIDERS: PCP Internal Medicine; Visit Provider Nurse Practitioner Family ==

== ENCOUNTER → 2022-09-28 15:48 | Outpatient (BNVA) | payer OTHER, SELFPAY | PROVIDERS: PCP Internal Medicine; Visit Provider Nurse Practitioner Family ==

== ENCOUNTER → 2022-10-01 15:56 | Outpatient (BNVA) | payer OTHER, SELFPAY | PROVIDERS: PCP Internal Medicine; Visit Provider Nurse Practitioner Family ==

== ENCOUNTER → 2022-10-08 15:27 | Outpatient (BNVA) | payer OTHER, SELFPAY | PROVIDERS: PCP Internal Medicine; Visit Provider Nurse Practitioner Family ==

== ENCOUNTER → 2022-10-16 11:54 | Outpatient (BNVA) | payer OTHER, SELFPAY | PROVIDERS: PCP Internal Medicine; Visit Provider Nurse Practitioner Family ==

== ENCOUNTER 2022-12-08 15:31 | Outpatient (REF) | payer OTHER, SELFPAY ==
[2022-12-08 15:56] LABS: MANUAL DIFF FLAG NO
[2022-12-08 17:15] LABS: Basophils Percent Auto 0.2 % (0-2); Eosinophils Percent Auto 0.1 % (0-4); Hematocrit 34.3 % (42.0-52.0); Hemoglobin 11.3 g/dl (14.0-18.0); Imm Gran Abs Auto 0.05 X10*3/uL (0.00-0.03); Imm Gran Pct Auto 0.5 % (0.0-0.4); Lymphocytes Absolute Auto 1.3 X10*3/uL (1.2-4.9); Lymphocytes Percent Auto 13.5 % (20-40); Mean Corpuscular HGB Conc 32.9 g/dl (31.0-36.0); Mean Corpuscular Hemoglobin 34.1 pg (27.0-33.0); Mean Corpuscular Volume 103.6 fL (80.0-98.0); Mean Platelet Volume 9.6 fL (9.4-12.4); Monocytes Absolute Auto 1.3 X10*3/uL (0.1-1.2); Monocytes Percent Auto 13.4 % (2-11); Neutrophils Absolute Auto 6.7 x10*3/uL (2.0-8.3); Neutrophils Percent Auto 72.3 % (45-73); Red Blood Count 3.31 X10*6/uL (4.60-5.80); Red Cell Distribution Width 13.4 % (11.0-16.0); White Blood Count 9.3 X10*3/uL (4.8-10.8)
[2022-12-08 17:19] LABS: Platelet Count 87 X10*3/uL (160-400)
[2022-12-08 19:24] LABS: Alanine Aminotransferase 27 U/L (0-40); Albumin Level 3.6 g/dL (3.5-5.0); Alkaline Phosphatase 145 U/L (39-117); Anion Gap 12 (12-20); Aspartate Amino Transferase 48 U/L (5-37); Bilirubin Total 2.4 mg/dL (0.0-1.0); Blood Urea Nitrogen 9 mg/dL (9-16); Calcium 9.4 mg/dL (8.4-10.2); Carbon Dioxide 24 mmol/L (22-29); Chloride 98 mmol/L (96-108); Cholesterol 102 mg/dL; Estimated Glomerular Filt Rate > 60; Glucose Random 113 mg/dL (60-115); HDL Cholesterol 42 mg/dL; LDL Cholesterol Calculated 51 mg/dl; Potassium 3.5 mmol/L (3.3-5.1); Sodium 130 mmol/L (135-145); Total Protein 8.4 g/dL (6.5-8.0); Triglycerides 46 mg/dL
[2022-12-08 19:38] LABS: Prostate Specific Antigen Scr 0.14 ng/mL (<0.05-4.0)
[2022-12-08 19:40] LABS: Thyroid Stimulating Hormone 1.92 uIU/mL (0.32-4.0)
== END 2022-12-08 15:32 | disposition home or self-care (01) ==
LOC: HO.LAB 15:31
PROVIDERS: PCP Internal Medicine; Visit Provider Internal Medicine
DX: Z00.00 Encounter for general adult medical examination without abnormal findings (principal); Z12.5 Encounter for screening for malignant neoplasm of prostate; I10 Essential (primary) hypertension; R74.01 Elevation of levels of liver transaminase levels; T21.22XA Burn of second degree of abdominal wall, initial encounter
CPT/HCPCS: 36415; 80053; 80061; 84153; 84443; 85025

== ENCOUNTER 2022-12-21 12:41 | Outpatient (AMB) | payer OTHER, SELFPAY ==
--- NOTE | 2022-12-21 12:45 | MHC.OFFVIS ---
Intake Vital Signs 12/21/22 12:46 Height 5 ft 9 in Weight 198 lb 13.711 oz BMI 29.4 BP 140/77 H Blood Pressure Location Lt brachial Pulse 80 Intake Visit Reasons: Colonoscopy screening Intake Note: Patient present s to in office visit today as a new patient for colonoscopy screening. CC: Denies having any GI symptoms or concerns today. Allergies oxycodone [From PERCOCET] Allergy (Unknown, Verified 12/21/22 12:47) ITCHING Medication List - Last Reconciled 12/21/22 by Bertha Macdonald PA-C lisinopril-hydrochlorothiazide 20-25 mg 1 tab PO DAILY HPI HPI Comments History of Present Illness Details 52-year-old male referred for screening colonoscopy No family history of GI cancers Appetite good-no issues Reflux only when spiced foods- not taking ppi Normal bowel pattern He has no GI or general complaints. He has no respiratory or cardiac in No nausea, vomiting, hematemesis, hematochezia fever chills PFSH Medical History (Updated 12/21/22 @ 12:50 by Bertha Macdonald PA-C) Fracture of lower extremity Pelvic fracture Social History (Updated 12/21/22 @ 13:27 by Bertha Macdonald PA-C) Household Members Other:: single Alcohol intake: current Alcohol intake frequency: 0-2 drinks per day Patient Tobacco Use Status: Never used Tobacco Current occupational status: employed Current occupation: [employer] Review of Systems Const All systems reviewed & are unremarkable except as noted in HPI and below Card Denies chest pain and Denies dyspnea Resp Denies dyspnea GI Denies abdominal pain, Denies change in bowel habits, Denies nausea and Denies vomiting Physical Exam Vital Signs: Last Vital Signs Pulse 80 12/21/22 12:46 BP 140/77 H 12/21/22 12:46 BMI result Body Mass Index 29.4 Const General: cooperative, comfortable and no acute distress Orientation/consciousness: patient oriented x3 Limitations: no limitations Eyes Sclerae: sclerae normal Resp Effort & Inspection: normal respiratory effort and able to speak in complete sentences Auscultation: clear to auscultation bilaterally and no wheezes Cardio Rate: regular rate Rhythm: regular rhythm Heart sounds: S1 normal heart sound present and S2 normal heart sound present GI Palpation (GI): Soft to palpation and nontender Auscultation: normal bowel sounds Skin General skin exam: no rashes or lesions noted Neuro General: patient oriented x3 Extrem General: Yes full ROM Psych Appearance: grossly normal Mental Status: mental status grossly normal Speech and movement: Normal speech and movement present Affect: normal affect Attitude: cooperative Thought process: Normal thought process present Thought content: Normal thought content present Assessment & Plan Assessment & Plan (1) Encounter for screening colonoscopy: Code(s): Z12.11 - Encounter for screening for malignant neoplasm of colon Plan: Index screening colonoscopy Discussed procedure, rare risk need for escorted due to anesthesia MiraLax Gatorade prep given literature Plan MG prep index screen Orders: Orders Colonoscopy - GI Use Only Today Z12.11 - Encounter for screening for malignant neoplasm of colon Medications: New bisacodyl (Dulcolax (bisacodyl)) Take 4 tablets by mouth at 12:00pm the day before your procedure. 20 mg (4 x 5 mg) PO ONCE 1 day 4 tabs 0RF colonoscopy prep Z12.11 - Encounter for screening for malignant neoplasm of colon polyethylene glycol 3350 (Miralax) Take as directed by mouth the day before your procedure. 238 grams PO ONCE 1 day PRN 238 grams 0RF laxative effect Patient Instructions: Pleasant 52-year-old male referred for index screening colonoscopy no GI complaints Index screening colonoscopy Discussed procedure, rare risk need for escorted due to anesthesia MiraLax Gatorade prep given literature Opportunity for questions answered to satisfaction Appreciate the opportunity assist in the care the patient Coding Level of Care Code New Pt Level 3 (97719) Diagnoses Encounter for screening colonoscopy Z12.11 Time Spent (min) 25
[2022-12-21 12:46] VITALS: BP 140/77; PULSE 80; BMI 29.4
== END 2022-12-21 13:37 | disposition home or self-care (01) ==
PROVIDERS: PCP Internal Medicine; Visit Provider Physician Assistant
DX: Z01.818 Encounter for other preprocedural examination (principal); Z12.11 Encounter for screening for malignant neoplasm of colon
CPT/HCPCS: S0285

== ENCOUNTER → 2022-12-21 12:41 | Outpatient (BNVA) | payer OTHER, SELFPAY | PROVIDERS: PCP Internal Medicine; Visit Provider Physician Assistant ==

== ENCOUNTER 2023-01-08 08:07 | Outpatient (REF) | payer OTHER, SELFPAY ==
--- NOTE | ~2023-01-08 | US_ITS ---
EXAMINATION: US ABDOMEN COMPLETE CLINICAL INFORMATION: Elevated liver function test. COMPARISON: Bilateral renal ultrasound dated 11/06/2011. TECHNIQUE: Real-time imaging of the abdominal viscera. FINDINGS: PANCREAS: The pancreas is appears somewhat heterogeneous. Details obscured by bowel gas. No focal lesion is seen in the pancreas. There is no surrounding fluid. ABDOMINAL AORTA: The proximal and distal segments are normal in caliber. INFERIOR VENA CAVA: Visualized portions are normal. LIVER: The liver is normal in size. The contour is mildly lobulated. Echogenicity is somewhat coarsened. The caudate lobe appears enlarged. The morphologic changes are suggestive of cirrhosis. There is mild perihepatic free fluid. There is evidence of recanalization of the umbilical vein, although portal flow is hepatopedal. There are 2 bright echogenic foci without significant shadowing in the superior left lobe measuring 11 mm and 9 mm, respectively. These may represent calcifications. No hepatic mass is appreciated. There is no intrahepatic biliary duct dilatation seen. GALLBLADDER: Normal. The gallbladder is physiologically distended without evidence of stones, sludge, polyps, wall thickening or pericholecystic fluid. COMMON BILE DUCT: Normal in caliber measuring 0.37 cm in diameter. RIGHT KIDNEY: Normal. No hydronephrosis. No renal calculi or focal parenchymal lesions. The kidney measures 11.0 cm in maximum dimension. LEFT KIDNEY: Normal. No hydronephrosis. No renal calculi or focal parenchymal lesions. The kidney measures 13.1 cm in maximum dimension. SPLEEN: The spleen is homogeneous. The spleen measures 14.8 cm in maximum dimension. FREE FLUID: Small amount of perihepatic fluid. US/US abdomen complete IMPRESSION: There are morphologic changes in the liver with coarsened echotexture, suggestive of cirrhosis. There is evidence of recanalization of the umbilical vein which may indicate portal venous hypertension, although portal blood flow is hepatopedal. There is a small amount of perihepatic free fluid. No hepatic mass is seen, but there are likely 2 calcifications in the superior left lobe.
== END 2023-01-08 08:08 | disposition home or self-care (01) ==
LOC: HO.US 08:07
PROVIDERS: PCP Internal Medicine; Visit Provider Internal Medicine
DX: R74.8 Abnormal levels of other serum enzymes (principal)
CPT/HCPCS: 76700

== ENCOUNTER 2023-03-02 13:33 | Day surgery (SDC) | payer OTHER, SELFPAY ==
[2023-02-26 14:15] VITALS: BMI 29.4
--- NOTE | 2023-03-01 10:53 | P.CONAN_ITS ---
Documented by User: Kelly Holt NP 03/01/23 10:55 HPI - Anesthesia Eval Consult details Narrative: 52yo M for Colonoscopy Low Na and Low Plt on 11/2022 labs. No etiology noted in 12/2022 PCP note. Will repeat DOS> PMFSH Active Problems Active Problems: All Active Problems (Updated 12/21/22 @ 12:50 by Bertha Macdonald PA-C) Encounter for screening colonoscopy (Acute) Penile edema (Acute) Scrotal edema (Acute) Cellulitis (Acute) Past Medical History Medical History Pelvic fracture Fracture of lower extremity Surgical History Surgical History History of surgery on lower extremity Hx of pelvic surgery Social History Social History Household Members Other:: single Alcohol intake: current Alcohol intake frequency: a few times a week Patient Tobacco Use Status: Current someday Tobacco user Tobacco use type: Cigarette Cigarettes Per Day: 1 Current occupational status: employed Current occupation: [employer] Allergies Allergy/AdvReac Type Severity Reaction Status Date / Time oxycodone [From PERCOCET] Allergy Unknown ITCHING Verified 03/02/23 13:48 Home Medications Medication Instructions Recorded Confirmed Last Taken Type lisinopril 20 1 tab PO DAILY 07/20/22 03/02/23 03/01/23 History mg-hydrochlorothiazide 25 mg tablet cyclosporine modified 100 mg 100 mg PO BID 03/02/23 03/02/23 02/24/23 History capsule mometasone 0.1 % topical ointment 1 appl topical BID 03/02/23 03/02/23 03/01/23 History prednisone 10 mg tablet 10 mg PO DAILY 03/02/23 03/02/23 02/16/23 History Exam Exam Date and Time: March 01, 2023 1053 Height,Weight and Vital Signs: Height 5 ft 9 in Weight 90.265 kg Assessment and Plan Assessment Anesthesia Assessment: Chart Reviewed Documented by User: Lissette Candelario MD 03/02/23 16:33 PMFSH Active Problems Active Problems: All Active Problems (Updated 12/21/22 @ 15:44 by Lissette Candelario MD ) Encounter for screening colonoscopy (Acute) Penile edema (Acute) Scrotal edema (Acute) Cellulitis (Acute) HTN Recent cold- last week. Resolved Past Medical History Medical History Pelvic fracture Fracture of lower extremity Family History Family history of problems with anesthesia: No Surgical History Surgical History History of surgery on lower extremity Hx of pelvic surgery History of Problems with Anesthesia: No Social History Social History Household Members Other:: single Alcohol intake: current Alcohol intake frequency: a few times a week Patient Tobacco Use Status: Current someday Tobacco user Tobacco use type: Cigarette Cigarettes Per Day: 1 Current occupational status: employed Current occupation: [employer] Allergies Allergy/AdvReac Type Severity Reaction Status Date / Time oxycodone [From PERCOCET] Allergy Unknown ITCHING Verified 03/02/23 13:48 Home Medications Medication Instructions Recorded Confirmed Last Taken Type lisinopril 20 1 tab PO DAILY 07/20/22 03/02/23 03/01/23 History mg-hydrochlorothiazide 25 mg tablet cyclosporine modified 100 mg 100 mg PO BID 03/02/23 03/02/23 02/24/23 History capsule mometasone 0.1 % topical ointment 1 appl topical BID 03/02/23 03/02/23 03/01/23 History prednisone 10 mg tablet 10 mg PO DAILY 03/02/23 03/02/23 02/16/23 History Exam Height,Weight and Vital Signs: Height 5 ft 9 in Weight 90.265 kg Vital Signs Temp Pulse Resp BP Pulse Ox O2 Del Method 03/02/23 14:13 98.6 F 87 16 124/68 98 Room Air Pertinent Lab Results Pertinent Lab Results: Lab Results 03/02/23 Range/Units 14:06 WBC 6.5 (4.8-10.8) X10*3/uL RBC 4.51 L D (4.60-5.80) X10*6/uL Hgb 14.1 D (14.0-18.0) g/dl Hct 40.4 L (42.0-52.0) % MCV 89.6 (80.0-98.0) fL MCH 31.3 (27.0-33.0) pg MCHC 34.9 (31.0-36.0) g/dl RDW 13.0 (11.0-16.0) % Plt Count 141 L D (160-400) X10*3/uL MPV 9.3 L (9.4-12.4) fL Absolute Nucleated RBC 0.000 (0.0-0.012) X10*3/uL Nucleated RBC % (auto) 0.0 (0.0-0.2) /100WBC Sodium 131 L (135-145) mmol/L Potassium 3.7 (3.3-5.1) mmol/L Chloride 101 (96-108) mmol/L Carbon Dioxide 19 L (22-29) mmol/L Anion Gap 15 (12-20) BUN 10 (9-16) mg/dL Creatinine 0.75 (0.5-1.4) mg/dL Estim Creat Clear Calc 130.2 Estimated GFR > 60 Fasting Glucose 119 H (60-99) mg/dL Calcium 10.0 D (8.4-10.2) mg/dL Airway Mallampati Class: III (Small mouth opening secondary to pain from cold sore angle if mouth left) TM Dist: >3cm Neck ROM: Full Loose/Missing/Broken Teeth: Yes (Missing molar bottom left. Denies broken or loose teeth) Heart: RRE Lungs: Occasional wheeze. Assessment and Plan Assessment Anesthesia Assessment: Anesthesia Plan Discussed Final Anesthetic Review Family History of Problems with Anesthesia: No History of Problems with Anesthesia: No NPO: Yes ASA Class: II Final Preanesthetic Review: No Changes in Pt Med Stat, Meds/Allgs Chart Reviewed, Consent Obtained/Reviewed and Anes Risks/Benef Reviewed Patient Risk: Intermediate Procedure Risk: Low Assessment/Block/Sedation in SS: Assess/Block/Sedation-SS Anesthetic Plan Anesthetic Plan: MAC: Disposition: Standard PACU
[2023-03-02 13:48] VITALS: BMI 29.1
--- NOTE | 2023-03-02 13:48 | MHC.SHP ---
Pre-Procedural Eval Section A Date of Service: 03/02/23 Section B Chief Complaint: Encounter for screening for malignant neoplasm of Details of Present Illness: PMH: Hx of pelvic fx Relevant Social History: None Present Medications: see Short Stay Collaborative assessment Allergies: Allergies Allergy/AdvReac Type Severity Reaction Status Date / Time oxycodone [From PERCOCET] Allergy Unknown ITCHING Verified 12/21/22 12:47 Review of Systems Review of Systems Comment: Ten point ROS negative Exam Exam Comment: Gen appear: No acute distress HEENT: no icterus Chest: No overt resp distress Abd: soft, nontender, nondistended Psych: Stable affect, answering questions appropriately Neuro: A/Ox3 noted to move all extremities spontaneously Ext: no peripheral edema Plan I have reviewed the history and physical and performed a pertinent physical examination on my patient. No changes have occurred unless specified. Pt also reports hx of colon cancer in his biological mother. He is not sure how old she was when she was first diagnosed. Time Spent With Patient Time: Total time managing care of this patient today ____ minutes.
[2023-03-02 14:13] VITALS: BP 124/68; PULSE 87; RESP 16; TEMP 37; O2SAT 98
[2023-03-02] MEDS: Lactated Ringers 1,000 ML 100 ML IVCONT (14:13)
--- NOTE | 2023-03-02 14:28 | P.OP_ITS ---
Operative Note Operative Note Date of Service: 03/02/23 Narrative: Procedure: Colonoscopy Indication: Screening, Family history of colon cancer Endoscopist: Zuleika Thorpe MD Anesthesia Provider: Dr Lissette Livingston Anesthesia type: MAC Instrument: Olympus [id number]-H190L Consent: Indication, risks vs benefits, and alternatives were discussed with the patient who gave written informed consent to proceed. EKG, pulse, pulse oximetry and blood pressure were monitored throughout the procedure. Please see anesthesia flowsheet. Procedure: The patient was brought to the procedure room and placed in the left lateral decubitus position. IV medications were administered by the anesthesia provider in attendance. A digital rectal exam was performed which was abnormal due to finding of hemorrhoids. A distal attachment cap was affixed to the tip of the scope and the colonoscope was then inserted through the anus and advanced through the colon to the cecum at 70 cm,and terminal ileum. Ileocecal valve and appendiceal orifice were identified. Mucosa was carefully examined under high definition white light as the instrument was slowly withdrawn in a retrograde panoramic fashion. Retroflexion was performed in rectum. The procedure was not difficult. There were no immediate obvious complications. The quality of the prep was BBPS: 2+3+3 = adequate Withdrawal time 14 minutes. Limitations: No limitations. Findings: Mucosa: Normal to cecum and terminal ileum. Protruding lesions: * 1 sessile polyp of size 6 mm in ascending colon. Cold snare polypectomy was performed. The polyp was completely removed and retrieved. * Whitish exudates and ulceration was noted over internal hemorrhoids ? prolapse changes. Excavated lesions: * A few scattered diverticuli were noted throughout the colon. Impression: 1. Normal colon and terminal ileum mucosa 2. Total of 1 polyp removed 3. External and internal hemorrhoids 4. Mild scattered diverticulosis Recommendations: - A referral to gen surg is being made for further evaluation of hemorrhoids. - Repeat colonoscopy in 5 years given fam hx of CRC in mother. - Increase fiber intake. Avoid constipation and straining.
[2023-03-02 14:30] LABS: Hematocrit 40.4 % (42.0-52.0); Hemoglobin 14.1 g/dl (14.0-18.0); Mean Corpuscular HGB Conc 34.9 g/dl (31.0-36.0); Mean Corpuscular Hemoglobin 31.3 pg (27.0-33.0); Mean Corpuscular Volume 89.6 fL (80.0-98.0); Mean Platelet Volume 9.3 fL (9.4-12.4); Platelet Count 141 X10*3/uL (160-400); Red Blood Count 4.51 X10*6/uL (4.60-5.80); White Blood Count 6.5 X10*3/uL (4.8-10.8)
[2023-03-02 14:42] LABS: Anion Gap 15 (12-20); Blood Urea Nitrogen 10 mg/dL (9-16); Carbon Dioxide 19 mmol/L (22-29); Chloride 101 mmol/L (96-108); Creatinine Clr Calc Pharmacy 130.2; Estimated Glomerular Filt Rate > 60; Glucose Fasting 119 mg/dL (60-99); Potassium 3.7 mmol/L (3.3-5.1); Sodium 131 mmol/L (135-145)
[2023-03-02 16:27] VITALS: BP 117/53; PULSE 74; RESP 14; TEMP 36.6; O2SAT 96
[2023-03-02 16:32] VITALS: BP 130/93; PULSE 74; RESP 16; O2SAT 99
[2023-03-02 16:42] VITALS: BP 151/88; PULSE 75; RESP 18; TEMP 36.7; O2SAT 98
== END 2023-03-02 16:59 | disposition home or self-care (01) ==
PROVIDERS: Nurse Practitioner; PCP Internal Medicine; Visit Provider Internal Medicine
PROC: 0DJD8ZZ Inspection of Lower Intestinal Tract, Via Natural or Artificial Opening Endoscopic (ICD-10-PCS; CPT 45378; principal; 2023-03-02 15:10)
DX: Z12.11 Encounter for screening for malignant neoplasm of colon (principal); Z80.0 Family history of malignant neoplasm of digestive organs; D12.2 Benign neoplasm of ascending colon; K57.30 Diverticulosis of large intestine without perforation or abscess without bleeding; K64.8 Other hemorrhoids; K64.4 Residual hemorrhoidal skin tags; I10 Essential (primary) hypertension; N48.89 Other specified disorders of penis; N50.89 Other specified disorders of the male genital organs; L03.90 Cellulitis, unspecified; Z79.52 Long term (current) use of systemic steroids; Z79.899 Other long term (current) drug therapy; Z88.5 Allergy status to narcotic agent; F17.210 Nicotine dependence, cigarettes, uncomplicated; Z98.890 Other specified postprocedural states
CPT/HCPCS: 45385; 36415; 80048; 85027; 88305

== ENCOUNTER → 2023-03-02 13:33 | Outpatient (BNV) | payer OTHER, SELFPAY | PROVIDERS: PCP Internal Medicine; Visit Provider Internal Medicine | DX: Z12.11 Encounter for screening for malignant neoplasm of colon (principal); Z80.0 Family history of malignant neoplasm of digestive organs; D12.2 Benign neoplasm of ascending colon; K57.90 Diverticulosis of intestine, part unspecified, without perforation or abscess without bleeding | CPT/HCPCS: 45385 ==

== ENCOUNTER 2023-03-15 16:53 | Outpatient (REF) | payer OTHER, SELFPAY ==
[2023-03-15 17:20] LABS: MANUAL DIFF FLAG NO
[2023-03-15 17:42] LABS: Basophils Percent Auto 0.6 % (0-2); Eosinophils Absolute Auto 0.1 X10*3/uL (0.0-0.4); Eosinophils Percent Auto 2.7 % (0-4); Hematocrit 37.7 % (42.0-52.0); Hemoglobin 13.8 g/dl (14.0-18.0); Imm Gran Abs Auto 0.02 X10*3/uL (0.00-0.03); Imm Gran Pct Auto 0.4 % (0.0-0.4); Lymphocytes Absolute Auto 1.3 X10*3/uL (1.2-4.9); Lymphocytes Percent Auto 25.9 % (20-40); Mean Corpuscular HGB Conc 36.6 g/dl (31.0-36.0); Mean Corpuscular Hemoglobin 32.3 pg (27.0-33.0); Mean Corpuscular Volume 88.3 fL (80.0-98.0); Mean Platelet Volume 9.5 fL (9.4-12.4); Monocytes Absolute Auto 0.9 X10*3/uL (0.1-1.2); Monocytes Percent Auto 16.9 % (2-11); Neutrophils Absolute Auto 2.8 x10*3/uL (2.0-8.3); Neutrophils Percent Auto 53.5 % (45-73); Platelet Count 112 X10*3/uL (160-400); Red Blood Count 4.27 X10*6/uL (4.60-5.80); Red Cell Distribution Width 13.4 % (11.0-16.0); White Blood Count 5.1 X10*3/uL (4.8-10.8)
[2023-03-15 18:01] LABS: Magnesium 1.9 mg/dL (1.6-2.6); Uric Acid 5.4 mg/dL (3.4-7.0)
== END 2023-03-15 16:54 | disposition home or self-care (01) ==
LOC: HO.LAB 16:53
PROVIDERS: PCP Internal Medicine; Visit Provider Student in an Organized Health Care Education/Training Program
DX: R21 Rash and other nonspecific skin eruption (principal)
CPT/HCPCS: 36415; 83735; 84550; 85025

== ENCOUNTER 2023-03-17 14:55 | Outpatient (AMB) | payer OTHER, SELFPAY ==
[2023-03-17 15:00] VITALS: BP 121/64; PULSE 69; BMI 27.3
--- NOTE | 2023-03-17 15:00 | MHC.OFFVIS ---
Intake Vital Signs 03/17/23 15:00 Height 5 ft 9 in Weight 185 lb BMI 27.3 BP 121/64 Blood Pressure Location Lt brachial Position Sitting Pulse 69 Intake Visit Reasons: S/p colon Intake Note: Patient follow up for Colonoscopy results. Patient denies any GI issues. Oxygen System Tester Required: No Accompanied by: Self / Same As Patient Allergies oxycodone [From PERCOCET] Allergy (Unknown, Verified 03/17/23 14:59) ITCHING HPI HPI Comments History of Present Illness Details A 52-year-old male follows up after recent screening colonoscopy with polypectomy He has no GI complaints. He tolerated procedure well Mother had colon polyps- not colon cancer- per his report He has a good appetite Normal bowel pattern Reviewed procedure report, pathology and recommendation [facility] Medical History (Updated 03/17/23 @ 15:14 by Bertha Macdonald PA-C) Pelvic fracture Fracture of lower extremity Surgical History Hx of colonoscopy History of surgery on lower extremity Hx of pelvic surgery Family History (Updated 03/17/23 @ 15:11 by Bertha Macdonald PA-C) Mother Adenomatous colon polyp Social History Household Members Other:: single Alcohol intake: current Alcohol intake frequency: a few times a week Patient Tobacco Use Status: Current someday Tobacco user Tobacco use type: Cigarette Cigarettes Per Day: 1 Current occupational status: employed Current occupation: [employer] Review of Systems Const All systems reviewed & are unremarkable except as noted in HPI and below Card Denies chest pain and Denies dyspnea Resp Denies dyspnea GI Denies abdominal pain Physical Exam Vital Signs: Last Vital Signs Pulse 69 03/17/23 15:00 BP 121/64 03/17/23 15:00 BMI result Body Mass Index 27.3 Const General: cooperative, healthy appearing, comfortable, no acute distress and well developed Orientation/consciousness: patient oriented x3 Limitations: no limitations Resp Effort & Inspection: normal respiratory effort and able to speak in complete sentences Neuro General: patient oriented x3 Extrem General: Yes full ROM Psych Appearance: grossly normal and well kempt Mental Status: mental status grossly normal Speech and movement: Normal speech and movement present and Clear speech present Affect: normal affect Attitude: cooperative Thought process: Normal thought process present Thought content: Normal thought content present Insight: Good insight present (Psych) Judgement: Good judgement present (Psych) Results Reviewed Results Reviewed: Findings: Mucosa: Normal to cecum and terminal ileum. Protruding lesions: 1 sessile polyp of size 6 mm in ascending colon. Cold snare polypectomy was performed. The polyp was completely removed and retrieved. Whitish exudates and ulceration was noted over internal hemorrhoids ? prolapse changes. Excavated lesions: A few scattered diverticuli were noted throughout the colon. Impression: 1. Normal colon and terminal ileum mucosa 2. Total of 1 polyp removed 3. External and internal hemorrhoids 4. Mild scattered diverticulosis Recommendations: - A referral to gen surg is being made for further evaluation of hemorrhoids. - Repeat colonoscopy in 5 years given fam hx of CRC in mother. - Increase fiber intake. Avoid constipation and straining Name: Jose Queen Age/Sex: 52/M Attending: Zuleika Thorpe MD : 1970 Submitted by: Zuleika Thorpe MD Copies to: Lindy Hill MD MR #: [id number] Status: [facility] Collected: 03/02/23 Location: [facility] Received: 03/03/23 Diagnosis Colon, ascending, polyp: Tubular adenoma; negative for high-grade dysplasia and carcinoma. Clinical History Pre-Op Dx: Encounter for screening for malignant neoplasm of colon Post-Op Dx: External hemorrhoids, diverticulosis, colon polyps Microscopic Description Microscopic sections reviewed. Material Received Ascending colon polyp Gross Description Received in formalin labeled ?ascending colon polyp? are 4 glistening, semitranslucent, soft, killian-yellow and killian-pink irregular, rectangular and papular tissue fragments ranging from 0.3-0.5 cm in greatest dimension which are submitted in toto in a single cassette labeled A. CEDS Copies To Lindy Hill MD [address] [place] [address] Zuleika Thorpe MD [address] [place] [address] [email or web address] NOTE: Unless otherwise stated, all tissue is formalin-fixed and paraffin-embedded. Some or all of the immunohistochemical tests reported herein may have been developed and their performance characteristics determined by [facility]. They have not been cleared or approved by the U.S. Food and Drug Administration (FDA). However, the FDA has determined that such clearance or approval is not necessary. This laboratory is certified under the Clinical Laboratory Improvement Amendments of 1988 (CLIA) as qualified to perform high complexity clinical laboratory testing. Patient: Jose Queen Age/Sex: 52/M MR#: [id number] Page 1 of 2 Assessment & Plan Assessment & Plan (1) Tubular adenoma: Code(s): D36.9 - Benign neoplasm, unspecified site (2) Hemorrhoids: Code(s): K64.9 - Unspecified hemorrhoids Plan HFD- Avoid straining consult surgery Orders: Referrals General Surgery Referral K64.9 - Unspecified hemorrhoids Patient Instructions: Repeat asymptomatic colonoscopy 5 years All first-degree relatives should begin screening at age 40 Avoid straining Maintain high-fiber diet Surgical consult for hemorrhoid Encouraged to call with questions or concerns Coding Level of Care Code Est Pt Level 3 (27406) Diagnoses Tubular adenoma D36.9 Hemorrhoids K64.9 Time Spent (min) 25
== END 2023-03-17 15:46 | disposition home or self-care (01) ==
PROVIDERS: PCP Internal Medicine; Visit Provider Physician Assistant
DX: D36.9 Benign neoplasm, unspecified site (principal); K64.9 Unspecified hemorrhoids
CPT/HCPCS: 99213

== ENCOUNTER → 2023-03-17 14:55 | Outpatient (BNVA) | payer OTHER, SELFPAY | PROVIDERS: PCP Internal Medicine; Visit Provider Physician Assistant ==

== ENCOUNTER 2023-05-25 14:16 | Outpatient (REF) | payer OTHER, SELFPAY ==
[2023-05-25 14:34] LABS: MANUAL DIFF FLAG NO
[2023-05-25 15:27] LABS: Basophils Percent Auto 1.1 % (0-2); Eosinophils Absolute Auto 0.2 X10*3/uL (0.0-0.4); Eosinophils Percent Auto 6.1 % (0-4); Hematocrit 36.5 % (42.0-52.0); Hemoglobin 12.5 g/dl (14.0-18.0); Imm Gran Abs Auto 0.01 X10*3/uL (0.00-0.03); Imm Gran Pct Auto 0.3 % (0.0-0.4); Lymphocytes Absolute Auto 1.1 X10*3/uL (1.2-4.9); Lymphocytes Percent Auto 29.7 % (20-40); Mean Corpuscular HGB Conc 34.2 g/dl (31.0-36.0); Mean Corpuscular Hemoglobin 32.1 pg (27.0-33.0); Mean Corpuscular Volume 93.6 fL (80.0-98.0); Mean Platelet Volume 9.2 fL (9.4-12.4); Monocytes Absolute Auto 0.6 X10*3/uL (0.1-1.2); Monocytes Percent Auto 14.7 % (2-11); Neutrophils Absolute Auto 1.8 x10*3/uL (2.0-8.3); Neutrophils Percent Auto 48.1 % (45-73); Red Cell Distribution Width 13.8 % (11.0-16.0); White Blood Count 3.7 X10*3/uL (4.8-10.8)
[2023-05-25 15:30] LABS: Platelet Count 87 X10*3/uL (160-400)
[2023-05-25 15:53] LABS: Alanine Aminotransferase 40 U/L (0-40); Albumin Level 4.1 g/dL (3.5-5.0); Alkaline Phosphatase 170 U/L (39-117); Anion Gap 10 (12-20); Aspartate Amino Transferase 60 U/L (5-37); Bilirubin Total 1.8 mg/dL (0.0-1.0); Blood Urea Nitrogen 6 mg/dL (9-16); Calcium 9.9 mg/dL (8.4-10.2); Carbon Dioxide 27 mmol/L (22-29); Chloride 101 mmol/L (96-108); Estimated Glomerular Filt Rate > 60; Glucose Random 134 mg/dL (60-115); Magnesium 1.7 mg/dL (1.6-2.6); Potassium 3.9 mmol/L (3.3-5.1); Sodium 134 mmol/L (135-145); Total Protein 8.7 g/dL (6.5-8.0); Uric Acid 5.8 mg/dL (3.4-7.0)
== END 2023-05-25 14:17 | disposition home or self-care (01) ==
LOC: HO.LAB 14:16
PROVIDERS: Visit Provider Student in an Organized Health Care Education/Training Program
DX: R21 Rash and other nonspecific skin eruption (principal)
CPT/HCPCS: 36415; 80053; 83735; 84550; 85025

== ENCOUNTER 2024-02-14 15:27 | Outpatient (REF) | payer BC, SELFPAY ==
[2024-02-14 15:46] LABS: MANUAL DIFF FLAG NO
[2024-02-14 16:51] LABS: Basophils Percent Auto 1.2 % (0-2); Eosinophils Absolute Auto 0.4 X10*3/uL (0.0-0.4); Eosinophils Percent Auto 11.4 % (0-4); Hematocrit 36.2 % (42.0-52.0); Imm Gran Abs Auto 0.02 X10*3/uL (0.00-0.03); Imm Gran Pct Auto 0.6 % (0.0-0.4); Lymphocytes Absolute Auto 1.4 X10*3/uL (1.2-4.9); Lymphocytes Percent Auto 41.8 % (20-40); Mean Corpuscular HGB Conc 35.9 g/dl (31.0-36.0); Mean Corpuscular Hemoglobin 34.5 pg (27.0-33.0); Mean Platelet Volume 9.3 fL (9.4-12.4); Monocytes Absolute Auto 0.5 X10*3/uL (0.1-1.2); Monocytes Percent Auto 13.5 % (2-11); Neutrophils Absolute Auto 1.1 x10*3/uL (2.0-8.3); Neutrophils Percent Auto 31.5 % (45-73); Red Blood Count 3.77 X10*6/uL (4.60-5.80); Red Cell Distribution Width 13.1 % (11.0-16.0); White Blood Count 3.4 X10*3/uL (4.8-10.8)
[2024-02-14 16:52] LABS: Platelet Count 95 X10*3/uL (160-400)
[2024-02-14 17:05] LABS: Alanine Aminotransferase 53 U/L (0-40); Albumin Level 4.1 g/dL (3.5-5.0); Alkaline Phosphatase 183 U/L (39-117); Anion Gap 16 (12-20); Aspartate Amino Transferase 79 U/L (5-37); Bilirubin Total 0.8 mg/dL (0.0-1.0); Blood Urea Nitrogen 4 mg/dL (9-16); Calcium 9.6 mg/dL (8.4-10.2); Carbon Dioxide 24 mmol/L (22-29); Chloride 102 mmol/L (96-108); Cholesterol 154 mg/dL (<200); Estimated Glomerular Filt Rate > 60; Glucose Random 107 mg/dL (60-115); HDL Cholesterol 64 mg/dL (>40); LDL Cholesterol Calculated 69 mg/dL (<100); Potassium 4.5 mmol/L (3.3-5.1); Sodium 137 mmol/L (135-145); Total Protein 8.7 g/dL (6.5-8.0); Triglycerides 105 mg/dL (<150)
[2024-02-14 17:29] LABS: Prostate Specific Antigen Scr 0.35 ng/mL (<0.05-4.0)
== END 2024-02-14 15:28 | disposition home or self-care (01) ==
LOC: HO.LAB 15:27
PROVIDERS: PCP Internal Medicine; Visit Provider Internal Medicine
DX: Z00.00 Encounter for general adult medical examination without abnormal findings (principal); I10 Essential (primary) hypertension; N40.0 Benign prostatic hyperplasia without lower urinary tract symptoms; N50.89 Other specified disorders of the male genital organs; R74.01 Elevation of levels of liver transaminase levels; Z12.5 Encounter for screening for malignant neoplasm of prostate
CPT/HCPCS: 36415; 80053; 80061; 84153; 85025

== ENCOUNTER 2025-01-22 12:47 | Emergency (ER) | payer BC, SELFPAY ==
--- NOTE | ~2025-01-22 | US_ITS ---
EXAMINATION: US SCROTUM CLINICAL INFORMATION: Scrotal pain and swelling. COMPARISON: None available. TECHNIQUE: A sonogram of the scrotum was performed assessing blackwood-scale appearance and color Doppler flow. Spectral Doppler analysis of the arterial and venous flow were performed in the testes bilaterally. FINDINGS: There is gross and diffuse scrotal skin thickening with hypervascularity on color Doppler. There is no loculated fluid collection. RIGHT: Right testicle measures 3.6 x 2.3 x 2.2 cm, volume 9 mL. No focal testicular parenchymal lesions are visualized. Spectral Doppler analysis of the arterial and venous flow is present in the right testis. Right epididymal head is normal in size. No right hydrocele or varicocele is seen. Right epididymal Doppler flow is present LEFT: Left testicle measures 3.1 x 2.1 x 2.9 cm, volume 10 mL. No focal testicular parenchymal lesions are visualized. Spectral Doppler analysis of the arterial and venous flow is present in the left testis. Left epididymal head is normal in size. No left hydrocele or varicocele is seen. Left epididymal Doppler flow is present US/US scrotum IMPRESSION: Scrotal skin thickening and hyperemia raises question of cellulitis. Otherwise, unremarkable ultrasound. Electronically signed by: Nelson Ballesteros MD 01/22/2025 04:16 PM EDT
[2025-01-22 13:06] VITALS: BP 141/67; PULSE 88; RESP 14; TEMP 36.7; O2SAT 95; BMI 28.9
--- NOTE | 2025-01-22 13:12 | ED.MALEGU ---
HPI - Male Genitourinary General Chief complaint: Urogenital-Male Stated complaint: swollen/ painful testicles Time Seen by Provider: 01/22/25 16:56 Source: patient, RN notes reviewed and old records reviewed Mode of arrival: ambulatory Limitations: no limitations History of Present Illness ED Provider: Yoana COLORADO Narrative: 54-year-old male past medical history significant for alcohol use disorder, recurrent scrotal cellulitis presents for evaluation of scrotal swelling. His symptoms started this morning. He reports that he had some discomfort but took Tylenol and has 0/10 pain. Denies any burning with urination. Denies any fevers, chills. He has seen Urology numerous times in the past and has been referred to [place]. He is also referred to application designer he feels as though nobody is helping him. This happens to him about once per year. He was seen here in July of 2022 and reports that he was at [facility] last year for similar complaint Related Data Home Medications ?Medication ?Instructions ?Recorded ?Confirmed lisinopril 20 1 tab PO DAILY 07/20/22 03/02/23 mg-hydrochlorothiazide 25 mg tablet cyclosporine modified 100 mg 100 mg PO BID 03/02/23 03/02/23 capsule mometasone 0.1 % topical ointment 1 appl topical BID 03/02/23 03/02/23 prednisone 10 mg tablet 10 mg PO DAILY 03/02/23 03/02/23 Previous Rx's ?Medication ?Instructions ?Recorded cefuroxime axetil 500 mg tablet 500 mg PO Q12H #20 tabs 01/22/25 Allergies Allergy/AdvReac Type Severity Reaction Status Date / Time oxycodone (From PERCOCET) Allergy Unknown ITCHING Verified 01/22/25 13:09 Review of Systems Constitutional: Constitutional: Denies chills and Denies fever(s) Eyes: Eyes: Denies blurry vision ENT: Denies dizziness Cardiovascular: Cardiovascular: Denies chest pain and Denies dyspnea on exertion Respiratory: Respiratory: Denies cough and Denies dyspnea on exertion Gastrointestinal: Gastrointestinal: Denies abdominal pain Genitourinary: Genitourinary: Denies dysuria, Denies flank pain, Reports scrotal swelling and Denies testicular mass Integumentary/Breasts: Skin/Breast: Reports erythema Neurologic: Denies dizziness [facility] Past Medical History Medical History (Updated 01/22/25 @ 18:24 by Ras Lees) Pelvic fracture Fracture of lower extremity Surgical History Hx of colonoscopy History of surgery on lower extremity Hx of pelvic surgery Family History Family History (Updated 03/17/23 @ 15:11 by Bertha Macdonald PA-C) Mother Adenomatous colon polyp Social History Social History Household Members Other:: single Alcohol intake: current Alcohol intake frequency: a few times a week Patient Tobacco Use Status: Current someday Tobacco user Tobacco use type: Cigarette Cigarettes Per Day: 1 Advance Directives: No Advance Directives Information Provided: Yes Do you have a plan to hurt others: No Plan Current occupational status: employed 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 no significant fluctuance. Minimal tenderness to palpation. Unremarkable uncircumcised male phallus Course Course Course Narrative: Rapid medical examination performed in triage by Lulu Fall PA-C. Patient is a 54 year old assigned male at presenting to the emergency department with scrotal swelling. Detailed physical exam and review of systems are deferred to the import clerk. Labs and imaging ordered. Patient placed back in the waiting room pending room availability and results. Medical Decision Making Medical Decision Making MDM Narrative: 54-year-old male with history of alcohol use disorder presents for evaluation of scrotal swelling. Has a history of recurrent scrotal cellulitis and appears to have an acute scrotal cellulitis. He had an ultrasound ordered which shows findings consistent with cellulitis but no gas or other scrotal abnormalities. The patient likely has some degree of alcoholic liver disease as he is pancytopenic, however his vital signs are within normal limits and he does not meet sepsis criteria. I discussed with Urology, Dr. Hare who recommends a dose of IV ceftriaxone, IV vancomycin 1 time dose and discharged with the patient with Ceftin 500 mg b.i.d.. I discussed this with the patient and he does not want to have any IV antibiotics, he would like to take the oral antibiotics only. I strongly advised the patient follow up with the recommendations provided by the urologist but was unable to convince the patient to receive his IV antibiotics. the patient is quite well appearing, again there was no gas seen in the ultrasound to suggest Jersey's gangrene. I have a low suspicion for this Differential Diagnosis Differential Diagnoses: The differential diagnosis associated with the presentation includes Cellulitis Lymphedema Abscess Jersey's gangrene less likely Consult Healthcare Provider Management of the patient was discussed with: Juke Box Mechanic ( urology, Dr. Hare) Lab Data MDM Lab Attestation statement: I reviewed the patient's lab results. patient has a pancytopenia likely related to alcoholic liver disease. There was no significant left shift. no significant chemistry abnormalities warranting intervention. He has a mild elevation of AST and alk phos, again likely due to alcoholic liver disease. 01/22/25 13:23 01/22/25 13:23 Labs: Lab Results 01/22/25 01/22/25 Range/Units 13:23 17:22 WBC 3.6 L (4.8-10.8) X10*3/uL RBC 3.34 L (4.60-5.80) X10*6/uL Hgb 11.7 L (14.0-18.0) g/dl Hct 33.2 L (42.0-52.0) % MCV 99.4 H (80.0-98.0) fL MCH 35.0 H (27.0-33.0) pg MCHC 35.2 (31.0-36.0) g/dl RDW 12.5 (11.0-16.0) % Plt Count 65 L D (160-400) X10*3/uL MPV 8.8 L (9.4-12.4) fL Immature Gran % (Auto) 0.3 (0.0-0.4) % Neut % (Auto) 45.8 (45-73) % Lymph % (Auto) 34.2 (20-40) % Clare % (Auto) 12.9 H (2-11) % Eos % (Auto) 6.2 H (0-4) % Baso % (Auto) 0.6 (0-2) % Lymph # (Auto) 1.2 (1.2-4.9) X10*3/uL Clare # (Auto) 0.5 (0.1-1.2) X10*3/uL Eos # (Auto) 0.2 (0.0-0.4) X10*3/uL Baso # (Auto) 0.0 (0.0-0.2) X10*3/uL Abs Immat Gran (auto) 0.01 (0.00-0.03) X10*3/uL Absolute Neuts (auto) 1.6 L (2.0-8.3) x10*3/uL Absolute Nucleated RBC 0.000 (0.0-0.012) X10*3/uL Nucleated RBC % (auto) 0.0 (0.0-0.2) /100WBC Sodium 143 (135-145) mmol/L Potassium 4.0 (3.3-5.1) mmol/L Chloride 109 H (96-108) mmol/L Carbon Dioxide 25 (22-29) mmol/L Anion Gap 13 (12-20) BUN 7 L (9-16) mg/dL Creatinine 0.77 (0.5-1.4) mg/dL Estim Creat Clear Calc 123.6 Estimated GFR > 60 Random Glucose 117 H (60-115) mg/dL Calcium 8.9 D (8.4-10.2) mg/dL Total Bilirubin 0.6 (0.0-1.0) mg/dL AST 50 H (5-37) U/L ALT 32 (0-40) U/L Alkaline Phosphatase 204 H (39-117) U/L Total Protein 7.6 (6.5-8.0) g/dL Albumin 3.9 (3.5-5.0) g/dL Urine Color Yellow Urine Appearance Clear Urine pH 8.0 (5.0-9.0) Ur Specific Paxton 1.015 (1.005-1.025) Urine Protein Negative (Neg-Trace) mg/dL Urine Glucose (UA) Negative (Negative) mg/dL Urine Ketones Negative (Negative) mg/dL Urine Blood Negative (Negative) Urine Nitrite Negative (Negative) Ur Leukocyte Esterase Moderate (2+) H (Negative) Urine RBC 0-2 (0-2) /HPF Urine WBC 0-5 (0-5) /HPF Ur Squamous Epith Cells 0-2 (0-2) /HPF Urine Bacteria None Seen (None Seen) Hyaline Casts 0-2 (0-2) /LPF Radiology Impression Discussion of test interpretation with radiology: I have reviewed the radiologist's reading. Radiologist Impression: FINDINGS: There is gross and diffuse scrotal skin thickening with hypervascularity on color Doppler. There is no loculated fluid collection. RIGHT: Right testicle measures 3.6 x 2.3 x 2.2 cm, volume 9 mL. No focal testicular parenchymal lesions are visualized. Spectral Doppler analysis of the arterial and venous flow is present in the right testis. Right epididymal head is normal in size. No right hydrocele or varicocele is seen. Right epididymal Doppler flow is present LEFT: Left testicle measures 3.1 x 2.1 x 2.9 cm, volume 10 mL. No focal testicular parenchymal lesions are visualized. Spectral Doppler analysis of the arterial and venous flow is present in the left testis. Left epididymal head is normal in size. No left hydrocele or varicocele is seen. Left epididymal Doppler flow is present US/US scrotum IMPRESSION: Scrotal skin thickening and hyperemia raises question of cellulitis. Otherwise, unremarkable ultrasound. Electronically signed by: Nelson Ballesteros MD 01/22/2025 04:16 PM EDT RP Discharge Plan Discharge Clinical Impression: Cellulitis of scrotum Patient Disposition: Home, Self-Care Additional Instructions: take the antibiotic twice daily for 10 days pain I recommend following up with Urology. Return to the ER for new or worsening symptoms, especially increasing pain, swelling or fevers Prescriptions: New cefuroxime axetil 500 mg tablet 500 mg PO Q12H Qty: 20 0RF No Action prednisone 10 mg tablet 10 mg PO DAILY mometasone 0.1 % ointment 1 appl topical BID cyclosporine modified 100 mg capsule 100 mg PO BID lisinopril-hydrochlorothiazide 20-25 mg tablet 1 tab PO DAILY Stand Alone Forms: Work/School Release Interventions: ED Discharge Assessment Last Done: 01/22/25 18:38 Discharge Date/Time: 01/22/25 18:54 Print Language: Romanian
[2025-01-22 13:27] LABS: MANUAL DIFF FLAG NO
[2025-01-22 13:29] LABS: Hematocrit 33.2 % (42.0-52.0); Hemoglobin 11.7 g/dl (14.0-18.0); Imm Gran Abs Auto 0.01 X10*3/uL (0.00-0.03); Imm Gran Pct Auto 0.3 % (0.0-0.4); Lymphocytes Absolute Auto 1.2 X10*3/uL (1.2-4.9); Mean Corpuscular HGB Conc 35.2 g/dl (31.0-36.0); Mean Corpuscular Hemoglobin 35.0 pg (27.0-33.0); Mean Corpuscular Volume 99.4 fL (80.0-98.0); NRBC Abs Auto 0.000 X10*3/uL (0.0-0.012); NRBC Pct Auto 0.0 /100WBC (0.0-0.2); Platelet Count 65 X10*3/uL (160-400); Red Blood Count 3.34 X10*6/uL (4.60-5.80); White Blood Count 3.6 X10*3/uL (4.8-10.8)
[2025-01-22 13:42] LABS: Alanine Aminotransferase 32 U/L (0-40); Albumin Level 3.9 g/dL (3.5-5.0); Alkaline Phosphatase 204 U/L (39-117); Anion Gap 13 (12-20); Aspartate Amino Transferase 50 U/L (5-37); Blood Urea Nitrogen 7 mg/dL (9-16); Calcium 8.9 mg/dL (8.4-10.2); Carbon Dioxide 25 mmol/L (22-29); Chloride 109 mmol/L (96-108); Creatinine Clr Calc Pharmacy 123.6; Estimated Glomerular Filt Rate > 60; Potassium 4.0 mmol/L (3.3-5.1); Sodium 143 mmol/L (135-145); Total Protein 7.6 g/dL (6.5-8.0)
[2025-01-22 17:29] LABS: Appearance Urine Clear; Glucose Urine UA Negative (Negative); PH 8.0 (5.0-9.0); Specific Gravity - Urine 1.015 (1.005-1.025); UMIC TRIGGER UACC YES
[2025-01-22 17:37] LABS: UACC Culture Trigger YES
[2025-01-22 17:58] VITALS: BP 133/80; PULSE 83; RESP 16; TEMP 36.8; O2SAT 97
[2025-01-22 18:38] VITALS: BP 133/80; PULSE 83; RESP 16; TEMP 36.8; O2SAT 97
--- OUTSIDE RECORDS SUMMARY | 2025-01-22 18:51 | XMS_ITS | Clinical Summary ---
Author Organization [facility] Address [address] [address] Phone Care Team Providers Care Radiator Fitter Name Role Phone Lindy Hill MD Primary Care Provider Self-Referred, Patient Unavailable Unavailab le Allergies Active Allergy Reactions Criticality Noted Date Comments Oxycodone-Acetaminophen 10/13/2024 Other Reaction(s): itchyness Medications lisinopril-hydro CHLOROthiazide (PRINZIDE,ZESTOR ETIC) 20-25 mg per tablet Take 1 tablet by mouth every morning. 3 Active silver sulfADIAZINE (SILVADENE) 1 % cream Apply topically 2 (two) times a day. 3 Active omeprazole (PRILOSEC) 20 MG capsule Take 1 capsule by mouth every morning. 3 Active ketoconazole 2 % cream Apply topically 2 (two) times a day. 3 Active traZODone (DESYREL) 50 MG tablet Take 100 mg by mouth nightly at bedtime. 3 Active adalimumab (HUMIRA,CF, PEN [id number]) 80 mg/0.8 mL pen kit citrate free Inject 2 pens (160 mg) under the skin on day 1 (given in one day or split over two consecutive days), followed by 1 pen (80 mg) two weeks later (day 15) 1 kit 4 Active adalimumab (HUMIRA) 40 mg/0.4 mL pen kit citrate free Inject 0.4 mL (40 mg total) under the skin every 14 (fourteen) days. 2.4 mL 4 Active mometasone (ELOCON) 0.1 % ointment APPLY EXTERNALLY TO THE AFFECTED AREA(S) OF SKIN IN THE GROIN TWICE DAILY 45 g 2 4 Active triamcinolone acetonide 0.5 % cream APPLY TOPICALLY TO TO THE AFFECTED AREA TWICE DAILY Active sildenafiL (VIAGRA) 100 mg tablet Take 1 tablet (100 mg total) by mouth daily as needed (take half a tablet on an empty stomach 20 mins prior to activity). 6 tablet 11 5 10/09/19 26 Active Active Problems No known active problems Social History Tobacco Use Types Packs/Day Years Used Date Smoking Tobacco: Some Days Cigarettes Smokeless Tobacco: Never Tobacco Cessation:Ready to Q uit: Not Asked; Counseling Given: Not Answered Education Answer Date Recorded Are you interested in more education? Not on cassia e 09/11/2022 Are you concerned about learning? Not on file 09/11/2022 No 09/11/2022 No 09/11/2022 Digital Access Answer Date Recorded No 10/07/2022 No 10/07/2022 Reliable internet access at home? Not on file 10/07/2022 Device with a working camera? Not on file Sex and Gender Information Value Date Recorded Sex Assigned at Male 01/07/2023 7:06 PM EDT Legal Sex Male 9:32 PM EDT Gender Identity Male 01/07/2023 7:06 PM EDT Sexual Orientation Straight 11/19/2023 4: 08 PM EDT Last Filed Vital Signs Vital Sign Reading Time Taken Comments Blood Pressure 117/78 10/13/2024 10:46 AM EDT Pulse 94 10/13/2024 10:46 AM EDT Temperature 36.8 C (98.3 F) 10/27/2019 12:46 PM EDT Respiratory Rate 16 10/27/2019 12:46 PM EDT Oxygen Saturation 97% 01/14/2023 2:37 PM EDT Inhaled Oxygen Concentration - - Weight 88.5 kg (195 lb) 10/13/2024 10:42 AM EDT Height 175.3 cm (5' 9 ) 10/13/2024 10:42 AM EDT Body Mass Index 28.8 10/13/2024 10:42 AM EDT Plan of Treatment Health Maintenance Due Date Last Done Comments Adult Td,Tdap Booster 1972 LIPID PANEL 1972 DEPRESSION SCREENING 1984 SMOKING Hx and SMOKELESS TOBACCO SCREENING 1985 PNEUMOCOCCAL VACCINES (50+ years) (1 of 2 - PCV) 1991 ZOSTER VACCINES (1 of 2) 1991 COLOGUARD 2017 COLONOSCOPY 2017 COLORECTAL CANCER SCREENING 2017 FIT TEST 2017 FOBT 2017 SIGMOIDOSCOPY 2017 VIRTUAL COLONOSCOPY 2017 CREATININE LEVEL 01/15/2024 01/14/2023 POTASSIUM LEVEL 01/15/2024 01/14/2023 INFLUENZA VACCINE (#1) 2024 COVID-19 VACCINE (2024-2 6 season) 2025 01/28/2021, 01/24/2021, 01/03/2021 SCREENING FOR DIABETES 01/14/2026 01/14/2023 HEPATITIS C SCREENING Completed 01/14/2023 HIV ONE-TIME SCREENING (18-6 5 YEARS) Completed 01/14/2023 HEPATITIS A VACCINES Aged Out No long er eligible based on patient's age to complete this topic HIB VACCINES Aged Out No longer eligi ble based on patient's age to complete this topic MENINGOCOCCAL VACCINES (ACWY) Aged Out No longer eligible based on patient's age to complete this topic MENINGOCOCCAL VACCINES (B) Aged Out N o longer eligible based on patient's age to complete this topic Medical Devices Not on file Procedures Procedure Name Priority Date/Time Associated Diagnosis Comments HEPATITIS C ANTIBODY, QUALITATIVE Routine 01/14/2023 2:43 PM EDT Need for hepatitis C screening test COMPREHENSIVE METABOLIC PANEL Routine 01/14/2023 2:43 PM EDT Rash from Last 3 Months or Most Recently Relevant to Health Maintenance Results * (ABNORMAL) Comprehensive metabolic panel (01/14/2023 2:43 PM EDT) SODIUM 139 136 - 145 mmol/L [facility] POTASSIUM 3.9 3.4 - 5.1 mmol/L [facility] CHLORIDE 104 98 - 107 mmol/L [facility] CO2 22 22 - 31 mmol/L [facility] BUN 5(L) 6 - 23 mg/dL [facility] CREATININE 0.75 0.50 - 1.20 mg/dL [facility] GLUCOSE 100 70 - 100 mg/dL [facility] ALBUMIN 4.1 3.5 - 5.2 g/dL [facility] TOTAL PROTEIN 7.9 6.4 - 8.3 g/dL [facility] CALCIUM 9.1 8.8 - 10.7 mg/dL [facility] ALKALINE PHOSPHATASE 150(H) 35 - 130 U/L [facility] TOTAL BILIRUBIN 0.8 0.0 - 1.0 mg/dL [facility] AST 80(H) 10 - 50 U/L [facility] ALT 52(H) 10 - 50 U/L [facility] GLOBULIN 3.8 2.2 - 4.2 g/dL [facility] EGFR 110 >59 mL/min/1. 73m2 [facility] Comment:Estimated glomerular filtration rate calculated using the CKD-EPI refit equation. ANION GAP 13 7 - 17 mmol/L [facility] Blood 01/14/2023 2:43 PM EDT 01/14/2023 6:59 PM EDT Jose Harry MD LAB BLOOD ORDERABLES Final Re sult [facility] [address] [place] [id number] * Hepatitis C antibody, qualitative (01/14/2023 2:43 PM EDT) HCV Nonreactive Nonreactive [facility] Comment: Blood 01/14/2023 2:43 PM EDT 01/14/2023 6:59 PM EDT Jose Harry MD LAB BLOOD ORDERABLES Final Re sult [facility] [address] [place] [id number] from Last 3 Months or Most Recently Relevant to Health Maintenance [place] [address] [place] [address] [place] [id number] [place] [address] PPO EPO [address] [place] [address] PPO EPO Care Teams Radiator Fitter Relationship Specialty Start Date End Date Lindy Hill MD [address] [place] [address] [place] [id number] PCP - General 10/27/19 Self-Referred, Patient 10/01/22 Additional Source Comments The information contained in this document represents components of the legal health record. It is not the complete legal health record.[facility]
--- OUTSIDE RECORDS SUMMARY | 2025-01-22 18:51 | XMS_ITS | Encounter Summary ---
Author Organization [facility] Address [address] [place] [phone] Phone Care Team Providers Care Inside Sales Trainer Name Role Phone Lindy Hill MD Primary Care Provider Self-Referred, Patient Unavailable Unavailab le Encounter Details Date Type Department Care Team (Late st Contact Info) Description 2024 Transcribe Orders Virtual Department [address] [place] [address] Jose Harry MD [address] [place] [address] [email or web address] Social History Tobacco Use Types Packs/Day Years Used Date Smoking Tobacco: Some Days Cigarettes Smokeless Tobacco: Never Education Answer Date Recorded Are you interested [...] Orientation Straight 11/19/2023 4: 08 PM EDT documented as of this encounter Plan of Treatment Not on file documented as of this encounter Visit Diagnoses Not on filedocumented in this encounter Care Teams Inside Sales Trainer Relationship Specialty Start Date End Date Lindy Hill MD [address] [place] [address] [place] [address] PCP - General 10/27/19 Self-Referred, Patient 10/01/22 documented as of this encounter Additional Source Comments The information contained in this document represents components of the legal health record. It is not the complete legal health record.[facility]
--- OUTSIDE RECORDS SUMMARY | 2025-01-22 18:51 | XMS_ITS | Encounter Summary ---
Author Organization [facility] Address [address] [place] [phone] Phone Care Team Providers Care Transmission System Operator Name Role Phone Lindy Hill MD Primary Care Provider Self-Referred, Patient Unavailable Unavailab le Encounter Details Date Type Department Care Team (Late st Contact Info) Description 06/08/2024 Procedure Pass [facility], [address] [place] [address] Social History Tobacco Use Types Packs/Day Years [...] on filedocumented in this encounter Care Teams Transmission System Operator Relationship Specialty Start Date End Date Lindy Hill MD [address] [place] [address] [place], [place] [phone] PCP - General 10/27/19 Self-Referred, Patient 10/01/22 documented as of this encounter Additional Source Comments The information contained in this document represents components of the legal health record. It is not the complete legal health record.[facility]
--- NOTE | 2025-01-27 16:42 | ED_ITS ---
HPI - Male Genitourinary General Chief complaint: Urogenital-Male Stated complaint: swollen/ painful testicles Time Seen by Provider: 01/22/25 16:56 Source: patient, RN notes reviewed and old records reviewed Mode of arrival: ambulatory Limitations: no limitations Related Data Home Medications ?Medication ?Instructions ?Recorded ?Confirmed lisinopril 20 1 tab PO DAILY 07/20/2202/14 mg-hydrochlorothiazide 25 mg tablet cyclosporine modified 100 mg 100 mg PO BID 03/02/23 capsule mometasone 0.1 % topical ointment 1 appl topical BID 1 03/02/23 prednisone 10 mg tablet 10 mg PO DAILY 03/02/2302/14 Previous Rx's ?Medication ?Instructions ?Recorded cefuroxime axetil 500 mg tablet 500 mg PO Q12H #20 tab s 01/22/25 nitrofurantoin 100 mg PO BID 7 days #14 cap s 01/27/25 monohydrate/macrocrystals 100 mg capsule (Macrobid) Allergies Allergy/AdvReac Type Severity Reaction Status Date / Time oxycodone (From PERCOCET) Allergy Unknown ITCHING Verified 01/22/25 13:09 [facility] Past Medical History Medical History (Updated 01/23/25 @ 00:00 by Nima Olsen) Pelvic fracture Fracture of lower extremity Surgical History Hx of colonoscopy History of surgery on lower extremity Hx of pelvic surgery Family History Family History (Updated 03/17/23 @ 15:11 by Bertha Macdonald PA-C) Mother Adenomatous colon polyp Social History Social History Household Members Other:: single Alcohol intake: current Alcohol intake frequency: a few times a week Patient Tobacco Use Status: Current someday Tobacco user Tobacco use type: Cigarette Cigarettes Per Day: 1 Advance Directives: No Advance Directives Information Provided: Yes Do you have a plan to hurt others: No Plan Current occupational status: employed 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 Patient needs additional ABX therapy as cefuroxime does not cover for E faecalis. I sent prescription for 7 days of Macrobid b.i.d., kidney function is clear. 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 Medical Decision Making Lab Data 01/22/25 13:23 01/22/25 13:23 Labs: Lab Results 01/22/25 01/22/25 Range/Units 13:23 17:22 WBC 3.6 L (4.8-10.8) X10*3/uL RBC 3.34 L (4.60-5.80) X10*6/uL Hgb 11.7 L (14.0-18.0) g/dl Hct 33.2 L (42.0-52.0) % MCV 99.4 H (80.0-98.0) fL MCH 35.0 H (27.0-33.0) pg MCHC 35.2 (31.0-36.0) g/dl RDW 12.5 (11.0-16.0) % Plt Count 65 L D (160-400) X10*3/uL MPV 8.8 L (9.4-12.4) fL Immature Gran % (Auto) 0.3 (0.0-0.4) % Neut % (Auto) 45.8 (45-73) % Lymph % (Auto) 34.2 (20-40) % [place] % (Auto) 12.9 H (2-11) % Eos % (Auto) 6.2 H (0-4) % Baso % (Auto) 0.6 (0-2) % Lymph # (Auto) 1.2 (1.2-4.9) X10*3/uL [place] # (Auto) 0.5 (0.1-1.2) X10*3/uL Eos # (Auto) 0.2 (0.0-0.4) X10*3/uL Baso # (Auto) 0.0 (0.0-0.2) X10*3/uL Abs Immat Gran (auto) 0.01 (0.00-0.03) X10*3/uL Absolute Neuts (auto) 1.6 L (2.0-8.3) x10*3/uL Absolute Nucleated RBC 0.000 (0.0-0.012) X10*3/uL Nucleated RBC % (auto) 0.0 (0.0-0.2) /100WBC Sodium 143 (135-145) mmol/L Potassium 4.0 (3.3-5.1) mmol/L Chloride 109 H (96-108) mmol/L Carbon Dioxide 25 (22-29) mmol/L Anion Gap 13 (12-20) BUN 7 L (9-16) mg/dL Creatinine 0.77 (0.5-1.4) mg/dL Estim Creat Clear Calc 123.6 Estimated GFR > 60 Random Glucose 117 H (60-115) mg/dL Calcium 8.9 D (8.4-10.2) mg/dL Total Bilirubin 0.6 (0.0-1.0) mg/dL AST 50 H (5-37) U/L ALT 32 (0-40) U/L Alkaline Phosphatase 204 H (39-117) U/L Total Protein 7.6 (6.5-8.0) g/dL Albumin 3.9 (3.5-5.0) g/dL Urine Color Yellow Urine Appearance Clear Urine pH 8.0 (5.0-9.0) Ur Specific [place] 1.015 (1.005-1.025) Urine Protein Negative (Neg-Trace) mg/dL Urine Glucose (UA) Negative (Negative) mg/dL Urine Ketones Negative (Negative) mg/dL Urine Blood Negative (Negative) Urine Nitrite Negative (Negative) Ur Leukocyte Esterase Moderate (2+) H (Negative) Urine RBC 0-2 (0-2) /HPF Urine WBC 0-5 (0-5) /HPF Ur Squamous Epith Cells 0-2 (0-2) /HPF Urine Bacteria None Seen (None Seen) Hyaline Casts 0-2 (0-2) /LPF Discharge Plan Discharge Clinical Impression: Cellulitis of scrotum Patient Disposition: Home, Self-Care Additional Instructions: take the antibiotic twice daily for 10 days pain I recommend following up with Urology. Return to the ER for new or worsening symptoms, especially increasing pain, swelling or fevers Prescriptions: New cefuroxime axetil 500 mg tablet 500 mg PO Q12H Qty: 20 0RF nitrofurantoin monohyd/m-cryst [Macrobid] 100 mg capsule 100 mg PO BID 7 Days Qty: 14 0RF Rx Instructions: must administer with a meal/food No Action prednisone 10 mg tablet 10 mg PO DAILY mometasone 0.1 % ointment 1 appl topical BID cyclosporine modified 100 mg capsule 100 mg PO BID lisinopril-hydrochlorothiazide 20-25 mg tablet 1 tab PO DAILY Stand Alone Forms: Work/School Release Interventions: ED Discharge Assessment Last Done: 01/22/25 18:38 Discharge Date/Time: 01/22/25 18:54 Print Language: Prydeinig
== END 2025-01-22 18:54 | disposition home or self-care (01) ==
PROVIDERS: Physician Assistant Medical; Emergency Provider Emergency Medicine Emergency Medical Services; PCP Internal Medicine
DX: N49.2 Inflammatory disorders of scrotum (principal); N50.82 Scrotal pain
CPT/HCPCS: 36415; 76870; 80053; 81001; 85025; 87086; 87088; 87186; 99283; 99284

== ENCOUNTER → 2025-01-22 13:13 | Outpatient (BNV) | payer BC, SELFPAY | PROVIDERS: PCP Internal Medicine; Visit Provider Radiology Diagnostic Radiology | DX: N50.82 Scrotal pain (principal); N50.89 Other specified disorders of the male genital organs | CPT/HCPCS: 76870 ==